=== PATIENT | female | born 1995 | race Caucasian/White ===

== ENCOUNTER → 2016-07-25 | Outpatient (CLI) | payer OTHER ==
[~2016-07-25] MED LIST: MTR600X PO; OXYC5TAB PO
--- NOTE | 2016-07-25 14:00 | DIAGNOSTIC IMAGING REPORT ---
CHEST 2 VIEWS ROUTINE CLINICAL HISTORY: Lower respiratory tract infection. Pneumonia. COMPARISON STUDY: No previous studies for comparison. FINDINGS: Lung volumes are normal. Lungs are clear. There is no pneumothorax or pleural effusion. Cardiac size is normal. Mediastinal contours are normal. There is no evidence of pulmonary edema. IMPRESSION: No acute cardiopulmonary findings. Electronically signed by: Fernando Paula M.D. 07/25/2016 1:59 PM Dictated Date/Time: 07/25/2016 1:59 PM
== END | disposition home or self-care (01) ==
LOC: C.RAD 13:27
PROVIDERS: ATTEND Physician Assistant Surgical
DX: J22 Unspecified acute lower respiratory infection (principal)

== ENCOUNTER → 2017-02-09 | Outpatient (CLI) | payer OTHER ==
[2017-02-09 13:16] LABS: MANUAL MICROSCOPIC REQUIRED? NO; REVIEW REQ? NO; URINE APPEARANCE CLEAR (CLEAR); URINE BILIRUBIN NEG (NEG); URINE COLOR YELLOW; URINE EPITHELIAL CELL AUTO >30 /lpf (0-5); URINE NITRITE NEG (NEG); URINE SPECIFIC GRAVITY 1.021 (1.000-1.030); UROBILINOGEN NEG (NEG)
== END | disposition home or self-care (01) ==
LOC: C.LABSPEC 12:01
PROVIDERS: ATTEND Obstetrics & Gynecology
DX: O34.219 Maternal care for unspecified type scar from previous cesarean delivery (principal); Z3A.00 Weeks of gestation of pregnancy not specified

== ENCOUNTER → 2017-05-18 | Outpatient (CLI) | payer OTHER ==
[2017-05-18 17:23] LABS: HEMATOCRIT 32.7 % (37-47); HEMOGLOBIN 10.9 g/dL (12.0-16.0)
== END | disposition home or self-care (01) ==
LOC: C.LAB1850 16:00
PROVIDERS: ATTEND Obstetrics & Gynecology
DX: Z34.83 Encounter for supervision of other normal pregnancy, third trimester (principal); Z3A.00 Weeks of gestation of pregnancy not specified

== ENCOUNTER 2017-06-19 14:54 | Outpatient (CLI) | payer OTHER ==
[~2017-06-19] VITALS: Ht 149.9 cm; Wt 73.0 kg
[2017-06-19 15:48] VITALS: Ht 149.9 cm; Wt 73.0 kg
[2017-06-19] MEDS ORDERED: PRENCAP38 PO (15:54)
== END 2017-06-19 16:35 | disposition home or self-care (01) ==
LOC: C.OPB 14:54 → C.LD 14:54 → C.OPB 16:35
PROVIDERS: ATTEND Obstetrics & Gynecology
DX: O99.89 Other specified diseases and conditions complicating pregnancy, childbirth and the puerperium (principal); R10.9 Unspecified abdominal pain; Z3A.32 32 weeks gestation of pregnancy

== ENCOUNTER → 2017-07-09 | Outpatient (CLI) | payer OTHER ==
[~2017-07-09] MED LIST changes: -MTR600X PO; -OXYC5TAB PO; +PRENCAP38 PO
== END | disposition home or self-care (01) ==
LOC: C.LAB1850 16:55
PROVIDERS: ATTEND Obstetrics & Gynecology
DX: L29.8 Other pruritus (principal)

== ENCOUNTER 2017-07-11 09:20 | Outpatient (CLI) | payer OTHER ==
[~2017-07-11] VITALS: Ht 149.9 cm; Wt 75.0 kg
[2017-07-11] MEDS ORDERED: ONDANSETRON 4 MG TAB PO PRN (09:30)
[2017-07-11] MEDS ORDERED: ONDANSETRON INJ 2 MG/ML 2 ML VIAL IV PRN (09:30)
[2017-07-11 09:48] LABS: BASO % 0.1 %; BASO ABS # 0.01 K/uL (0-0.2); EOS % 0.6 %; EOS ABS # 0.07 K/uL (0-0.5); HEMATOCRIT 33.9 % (37-47); HEMOGLOBIN 11.3 g/dL (12.0-16.0); IG# 0.03 K/uL (0.00-0.02); LYMPH ABS # 1.95 K/uL (1.2-3.4); MEAN CELL VOLUME 83.5 fL (80-100); MEAN CORPUSCULAR HEMOGLOBIN 27.8 pg (25-34); MEAN CORPUSCULAR HGB CONC 33.3 g/dl (32-36); MEAN PLATELET VOLUME 9.8 fL (7.4-10.4); MONO % 5.2 %; MONO ABS # 0.63 K/uL (0.11-0.59); NEUT % 77.9 %; NEUT ABS # 9.52 K/uL (1.4-6.5); PLATELET COUNT 326 K/uL (130-400); RED CELL DISTRIBUTION WIDTH CV 12.6 % (11.5-14.5); RED CELL DISTRIBUTION WIDTH SD 38.1 fL (36.4-46.3); WHITE BLOOD COUNT 12.21 K/uL (4.8-10.8)
[2017-07-11 09:58] VITALS: Ht 149.9 cm; Wt 75.0 kg
[2017-07-11 10:02] LABS: LIPASE 81 U/L (73-393)
[2017-07-11 10:05] LABS: ALBUMIN 2.6 gm/dl (3.4-5.0); ALT/SGPT 97 U/L (12-78); BLOOD UREA NITROGEN 11 mg/dl (7-18); CALCIUM 8.6 mg/dl (8.5-10.1); CARBON DIOXIDE 22 mmol/L (21-32); CREATININE 0.59 mg/dl (0.60-1.20); GLUCOSE 86 mg/dl (70-99); POTASSIUM 3.8 mmol/L (3.5-5.1); SODIUM 135 mmol/L (136-145)
[2017-07-11 10:08] LABS: ALKALINE PHOSPHATASE 192 U/L (45-117); AST/SGOT 44 U/L (15-37); TOTAL PROTEIN 7.4 gm/dl (6.4-8.2)
[2017-07-11] MEDS ORDERED: LACTATED RINGER'S 1000ML 1,000 ML IV SCH (11:45)
[2017-07-17] MEDS ORDERED: MTR600X PO (08:25)
[2017-07-17] MEDS ORDERED: OXYC-57 PO (08:25)
== END 2017-07-11 11:55 | disposition short-term general hospital (02) ==
LOC: C.OPB 09:20 → C.LD 09:20 → C.OPB 11:55
PROVIDERS: ATTEND Obstetrics & Gynecology
DX: O99.89 Other specified diseases and conditions complicating pregnancy, childbirth and the puerperium (principal); L29.9 Pruritus, unspecified; Z3A.36 36 weeks gestation of pregnancy

== ENCOUNTER 2017-07-12 13:52 | Outpatient (CLI) | payer OTHER ==
[2017-07-12] MEDS ORDERED: NURSING VERBAL MED ORDER ONE (14:15)
[2017-07-12] MEDS ORDERED: BETAMETH SOD PHOS/ACETATE IA 6 MG/ML IM ONE (14:30)
[2017-07-17] MEDS ORDERED: MTR600X PO (08:25)
[2017-07-17] MEDS ORDERED: OXYC-57 PO (08:25)
--- NOTE | 2017-07-17 10:48 | EDITING REQUIRED CODING QUERY ---
DIAGNOSIS NEEDED To promote full compliance with coding requirements relating to patient care, physician participation is requested in all cases of selling manager uncertainty. Please assist us with the question(s) below: Coding Question: The patient received a betamethasone injection in labor and delivery on 07/12/17 as noted within the record. Please document the diagnosis that is being addressed by the medication/treatment. Provider Response: DIAGNOSIS: Elevated liver enzymes. Suspected intrahepatic cholestasis of WEEKS GESTATION: 35 Thank you for your assistance, Yeimy Smith - Sewage Reticulation Drafting Officer
== END 2017-07-12 14:30 | disposition home or self-care (01) ==
LOC: C.OPB 13:52 → C.LD 13:52 → C.OPB 14:30
PROVIDERS: ATTEND Obstetrics & Gynecology
DX: O26.893 Other specified pregnancy related conditions, third trimester (principal); R74.8 Abnormal levels of other serum enzymes; Z3A.35 35 weeks gestation of pregnancy

== ENCOUNTER → 2017-07-13 | Outpatient (CLI) | payer OTHER ==
[2017-07-13 15:38] LABS: HEMATOCRIT 32.2 % (37-47); HEMOGLOBIN 10.5 g/dL (12.0-16.0); MEAN CELL VOLUME 84.7 fL (80-100); MEAN CORPUSCULAR HEMOGLOBIN 27.6 pg (25-34); MEAN CORPUSCULAR HGB CONC 32.6 g/dl (32-36); MEAN PLATELET VOLUME 10.1 fL (7.4-10.4); PLATELET COUNT 358 K/uL (130-400); RED CELL DISTRIBUTION WIDTH CV 12.6 % (11.5-14.5); RED CELL DISTRIBUTION WIDTH SD 38.7 fL (36.4-46.3); WHITE BLOOD COUNT 11.38 K/uL (4.8-10.8)
[2017-07-13 16:05] LABS: ALBUMIN 2.8 gm/dl (3.4-5.0); TOTAL PROTEIN 7.5 gm/dl (6.4-8.2)
== END | disposition home or self-care (01) ==
LOC: C.LAB1850 14:08
PROVIDERS: ATTEND Obstetrics & Gynecology
DX: L29.8 Other pruritus (principal)

== ENCOUNTER 2017-07-14 10:55 | Inpatient (IN) | payer OTHER ==
[2017-07-13 19:50] VITALS: BP 144/77; PULSE 81; TEMP 37; O2SAT 99
[~2017-07-14] VITALS: Ht 149.9 cm; Wt 74.1 kg
[2017-07-14 11:38] LABS: BASO % 0.2 %; BASO ABS # 0.02 K/uL (0-0.2); EOS % 1.2 %; HEMATOCRIT 32.2 % (37-47); HEMOGLOBIN 10.5 g/dL (12.0-16.0); IG# 0.03 K/uL (0.00-0.02); LYMPH % 26.6 %; LYMPH ABS # 2.24 K/uL (1.2-3.4); MEAN CELL VOLUME 84.1 fL (80-100); MEAN CORPUSCULAR HEMOGLOBIN 27.4 pg (25-34); MEAN CORPUSCULAR HGB CONC 32.6 g/dl (32-36); MEAN PLATELET VOLUME 9.7 fL (7.4-10.4); MONO % 14.6 %; MONO ABS # 1.23 K/uL (0.11-0.59); NEUT ABS # 4.81 K/uL (1.4-6.5); PLATELET COUNT 356 K/uL (130-400); RED CELL DISTRIBUTION WIDTH CV 12.7 % (11.5-14.5); RED CELL DISTRIBUTION WIDTH SD 38.8 fL (36.4-46.3); WHITE BLOOD COUNT 8.43 K/uL (4.8-10.8)
[2017-07-14 11:46] LABS: INR 0.9 (0.9-1.1); PTT PATIENT 21.5 SECONDS (21.0-31.0)
[2017-07-14 11:55] LABS: ALBUMIN 2.6 gm/dl (3.4-5.0); ALT/SGPT 331 U/L (12-78); BLOOD UREA NITROGEN 9 mg/dl (7-18); CALCIUM 8.7 mg/dl (8.5-10.1); CARBON DIOXIDE 24 mmol/L (21-32); CREATININE 0.57 mg/dl (0.60-1.20); GLUCOSE 67 mg/dl (70-99); POTASSIUM 3.9 mmol/L (3.5-5.1); SODIUM 137 mmol/L (136-145); URIC ACID 5.4 mg/dl (2.6-7.2)
[2017-07-14 11:58] LABS: ALKALINE PHOSPHATASE 163 U/L (45-117); AST/SGOT 210 U/L (15-37); TOTAL PROTEIN 7.2 gm/dl (6.4-8.2)
[2017-07-14 13:23] LABS: HEP C IGG 13 YRS+OLDER_RFLX NEG (NEG)
[2017-07-14] MEDS ORDERED: CITRIC ACID/SODIUM CITRATE 15 ML UDC PO ONE (14:15)
[2017-07-14] MEDS ORDERED: LACTATED RINGER'S 1000ML 1,000 ML IV SCH (14:15)
[2017-07-14] MEDS ORDERED: CEFAZOLIN IV 2,000 MG in SYRINGE 0 ML IV SCH (14:30)
[2017-07-14 14:59] VITALS: Ht 149.9 cm; Wt 74.1 kg
[2017-07-14] MEDS ORDERED: MoRPHine SULFATE PF 1 MG/ML 10 ML AMP/VIAL ONE (15:18)
[2017-07-14] MEDS ORDERED: OXYTOCIN INJ 10 UNITS/ML VIAL ONE ×2 (15:18→16:09)
[2017-07-14] MEDS ORDERED: FENTANYL CITRATE INJ 50 MCG/1 ML 2 ML VIAL ONE (15:18)
[2017-07-14] MEDS ORDERED: PHENYLEPHRINE 100MCG/ML 5ML SYR ONE (15:42)
[2017-07-14] MEDS ORDERED: ONDANSETRON INJ 2 MG/ML 2 ML VIAL ONE (16:11)
[2017-07-14] MEDS ORDERED: NALOXONE HCL INJ 0.08 MG in SYRINGE 1.8 ML IV PRN (16:13)
[2017-07-14] MEDS ORDERED: SODIUM CHLORIDE 0.9% 1000ML 1,000 ML IV PRN (16:13)
[2017-07-14] MEDS ORDERED: NALOXONE HCL INJ 1 MG in SODIUM CHLORIDE 0.9% 1000ML 1,000 ML IV PRN (16:13)
[2017-07-14] MEDS ORDERED: LACTATED RINGER'S 1000ML 500 ML IV PRN (16:13)
[2017-07-14] MEDS ORDERED: MoRPHine SULFATE 2 MG/ML CARP IV PRN (16:15)
[2017-07-14] MEDS ORDERED: NALBUPHINE HCL INJ 10 MG/ML AMP IV PRN (16:15)
[2017-07-14] MEDS ORDERED: NO NARCOTICS OR SEDATIVES SCH (16:15)
[2017-07-14] MEDS ORDERED: DiphenhydrAMINE HCL 50 MG/ML VIAL IV PRN (16:15)
[2017-07-14] MEDS ORDERED: MoRPHine SULFATE PF 1 MG/ML 10 ML AMP/VIAL EPI PRN (16:15)
[2017-07-14] MEDS ORDERED: ONDANSETRON INJ 2 MG/ML 2 ML VIAL IV PRN (16:15)
[2017-07-14] MEDS ORDERED: NALOXONE HCL 0.4 MG/1 ML VIAL/CARP IV PRN (16:15)
[2017-07-14] MEDS ORDERED: EpHEDrine SULFATE INJ 50 MG/ML AMP IV PRN (16:15)
[2017-07-14] MEDS ORDERED: D5W AND LACTATED RINGERS 1,000 ML IV SCH (16:35)
--- NOTE | 2017-07-14 16:42 | [facility] Post Operative Brief Note ---
Immediate Operative Summary Operative Date Jul 14, 2017. Pre-Operative Diagnosis Intrauterine at 36 weeks;Intrahepatic Cholestasis of ;Elevated Liver Enzymes;Previous Caesarean Section Post-Operative Diagnosis Same Procedure(s) Performed Repeat Caesarean Section; Delivery of a live male child at [address] Jama Dental Ceramist Surgeon(s) Sulma Hope RN Estimated Blood Loss 600 cc Findings Consistent with Post-Op Diagnosis Specimens cord blood placenta-exam arterial and venous gases Drains ALLRED Anesthesia Type Spinal Complication(s) none Disposition Accompanied Pt To Recover: no Disposition: L&D
[2017-07-14] MEDS ORDERED: LANOLIN OINT EXT PRN (16:45)
[2017-07-14] MEDS ORDERED: DIPHTHERIA/TETANUS/PERTUSSIS 0.5 ML SYR/VIAL IM. ONE (16:45)
[2017-07-14] MEDS ORDERED: DC PCA PRN (16:45)
[2017-07-14] MEDS ORDERED: OXYTOCIN INJ 20 UNITS in LACTATED RINGER'S 1000ML 1,000 ML IV SCH (17:00)
--- NOTE | 2017-07-14 17:04 | OPERATIVE REPORT ---
DATE OF OPERATION: 07/14/2017 PREOPERATIVE DIAGNOSES: 1. Intrauterine at 36 and 0/7th weeks. 2. Presumed Intrahepatic cholestasis of . 3. Elevated liver enzymes. 4. History of section, desires repeat. SURGEON: Dr. Jama. CLINICAL DATA PROGRAMMER: Sulma Hope RN. ANESTHESIA: Spinal. ESTIMATED BLOOD LOSS: 600 mL. FLUIDS: 2000 mL. URINE OUTPUT: 100 mL of clear yellow urine drained from the bladder at the end of the procedure. INDICATIONS: The patient is a 21-year-old 2, para 1-0-0-1 with a history of previous section for failure to progress, who has suspected intrahepatic cholestasis of and worsening liver functions. She has been ruled out for preeclampsia and hepatitis, and on consult with [facility], they recommend delivery. FINDINGS: Viable male infant in cephalic presentation, no nuchal cord, clear amniotic fluid, Apgars 8, 8 and 9. Normal uterus, tubes, and ovaries were noted bilaterally. COMPLICATIONS: None. DRAINS: Abdul. DISPOSITION: To recovery room in stable condition. DESCRIPTION OF PROCEDURE: The patient was taken the operating room where she was identified verbally and by bracelet. She was seated on the operating table where a spinal anesthetic was placed. She was then placed in dorsal supine position with a leftward tilt. A Abdul catheter was placed sterilely. The patient was prepped and draped in normal sterile fashion. A time-out was held identifying correct patient, procedure and positioning. A Pfannenstiel skin incision was made with a knife. This was taken to the underlying layer of fascia with the knife. Bleeding was attended to with Bovie electrocautery. The knife was used to incise the fascia in the midline. This was taken out laterally with scissors. The superior edge of the fascial incision was grasped and elevated and the underlying layer of rectus muscle was taken off bluntly and with scissors. In a similar fashion, the inferior edge of the fascial incision was grasped and elevated and the underlying layer of rectus muscle was taken off bluntly and with scissors. The muscles were sharply and bluntly in the midline. The peritoneum was entered bluntly. The peritoneum was taken superiorly sharply with good visualization and the incision was stretched, the bladder blade was placed. The custom feed mill operator's hand was placed into the abdomen. There were some adhesions that were broken down with the custom feed mill operator's hand and there was a dense adhesion on the right side of the uterus, but this was not needed to be taken down prior to delivery of the baby. The bladder flap was created sharply with scissors with some difficulty, it was quite adherent and high on the uterus. The hysterotomy incision was then made with the knife, staying high. Amniotomy was performed with a snap. Clear fluid was released. The custom feed mill operator's hand was then placed into the uterus, we had a difficult time delivering the head, so the vacuum was called for. The vacuum was applied and the head was delivered. The vacuum was removed. There was no nuchal cord. The nose and mouth were bulb suctioned and the rest of the infant was then delivered without difficulty. The nose and mouth were again bulb suctioned. The cord was clamped and cut. The was handed off to waiting interior assemblies developer prover for drying and attention. Cord blood and gases were obtained. Placenta was delivered via manual extraction. The uterus was exteriorized and cleared of all clot and debris with moistened laparotomy sponges. The inferior edge of the hysterotomy incision was grasped with T clamps, and the first layer of 0 Vicryl locked suture was placed. Being very careful to be aware of where the bladder was. A second imbricating layer was then placed. Hemostasis was attended to with some Bovie electrocautery. The posterior cul-de-sac was cleared of all clot and debris. The thick adhesion on the right side of the uterus to the anterior abdominal wall was taken down with Bovie electrocautery. Some oozing sites on the anterior uterus from previous small adhesions were attended to with Bovie electrocautery. The uterus was reinteriorized. One [id number]-[id number] stitch was needed for hemostasis and then hemostasis was noted to be good. The rectus muscles were reapproximated in the midline with interrupted stitches of 0 Vicryl. The fascia was repaired with 0 Vicryl starting at the edges and meeting in the midline. Subcuticular tissue was copiously irrigated with warm normal saline and bleeding was attended to with Bovie electrocautery. The subcuticular space was reapproximated with horizontal mattress sutures of 2-0 plain gut and the skin was closed with a suture of 4-0 Vicryl. All sponge, lap and needle counts were correct x2. The patient tolerated the procedure well and was taken to recovery room in stable condition. I attest to the content of the Intraoperative Record and any orders documented therein. Any exceptions are noted below. MTDD
[2017-07-14] MEDS: SIMETHICONE 80 MG CHEW PO SCH ×2 (17:15→20:00)
[2017-07-14] MEDS: KETOROLAC TROMETHAMINE 30 MG/ML VIAL IV. PRN ×2 (17:26→23:39)
--- NOTE | 2017-07-14 18:28 | Anesthesiology Progress Note ---
Anesthesia Post Op Note Date & Time Jul 14, 2017 at 18:27 Vital Signs Pain Intensity: 2 Notes Mental Status: alert / awake / arousable, participated in evaluation Pt Amnestic to Procedure: Yes Nausea / Vomiting: adequately controlled Pain: adequately controlled Airway Patency, RR, SpO2: stable & adequate BP & HR: stable & adequate Hydration State: stable & adequate Neuraxial Anesthesia: was administered, sensory block is resolving Anesthetic Complications: no major complications apparent
[2017-07-14 18:50] VITALS: BP 126/81; PULSE 79; TEMP 36.9; O2SAT 100; O2SAT 99
[2017-07-14] MEDS: MEPERIDINE HCL 25 MG/ML CARP IV PRN (18:54)
[2017-07-14] MEDS: DOCUSATE SODIUM 100 MG CAP PO SCH (20:00)
[2017-07-14 20:50] VITALS: BP 140/72; PULSE 84; O2SAT 99
[2017-07-14 21:50] VITALS: O2SAT 98
[2017-07-14] MEDS ORDERED: INFLUENZA ADMINISTRATION CHARGE ONE (22:45)
[2017-07-14] MEDS ORDERED: INFLUENZA VIRUS QUAD VACCINE 0.5 ML SYR IM. ONE (22:45)
[2017-07-14 23:30] VITALS: BP 114/73; PULSE 76; TEMP 37; O2SAT 95
[2017-07-15] VITALS (14 sets, daily range): BP systolic 110–125; BP diastolic 74–80; PULSE 72–80; TEMP 36.5–36.8; O2SAT 93–99
[2017-07-15] MEDS ORDERED: LACTATED RINGER'S 1000ML 1,000 ML IV SCH (01:00)
[2017-07-15] MEDS ORDERED: INFLUENZA ADMINISTRATION CHARGE ONE (03:00)
[2017-07-15] MEDS ORDERED: INFLUENZA VIRUS QUAD VACCINE 0.5 ML SYR IM. ONE (03:00)
[2017-07-15] MEDS: MEPERIDINE HCL 25 MG/ML CARP IV PRN (03:54)
--- NOTE | 2017-07-15 06:29 | Progress Note ---
Subjective Jul 15, 2017. Subjective conversation w/ patient, physical exam Ambulation: limited ambulation Voiding: deleon catheter in place Passing Gas: Yes Diet Tolerance: Clear Liquids (to be advanced to solids today as tolerated) Lochia: Small Feeding Type: Bottle Feeding Pain: reports moderate amount of pain, improved with rx Comment: pt seen and assessed at bedside today; no acute events overnight Review of Systems Constitutional: No fever, No chills Respiratory: No cough, No shortness of breath Cardiac: No chest pain, No edema Abdomen: No nausea, No vomiting no headaches or calf pain Objective Vital Signs Date Time Temp Pulse Resp B/P (MAP) Pulse Ox O2 Delivery O2 Flow Rate FiO2 07/15/17 05:35 16 94 07/15/17 04:45 18 97 07/15/17 03:20 18 94 07/15/17 03:20 36.8 76 18 125/80 (95) 94 Room Air 07/15/17 02:40 18 95 07/15/17 01:35 18 93 07/15/17 00:15 18 96 07/14/17 23:30 37.0 76 18 114/73 (87) 95 Room Air 07/14/17 23:30 18 95 07/14/17 23:30 95 Room Air 07/14/17 21:50 18 98 07/14/17 20:50 18 99 07/14/17 20:50 84 18 140/72 (94) 99 Room Air 07/14/17 18:50 16 100 07/14/17 18:50 99 Room Air 07/14/17 18:50 100 Room Air 07/14/17 18:50 36.9 79 18 126/81 (96) 100 Room Air Physical Exam General Appearance: WELL-APPEARING, WD/WN, NO APPARENT DISTRESS Respiratory/Chest: chest non-tender, lungs clear, normal breath sounds, no respiratory distress Cardiovascular: regular rate, rhythm, no edema, no murmur Abdomen: normal bowel sounds, non tender, soft Fundus: Firm, Non-Tender, Relation to Umbilicus (2-3 below) Incision Description: Clean, Dry & Intact Extremities: normal range of motion, non-tender, normal inspection, no pedal edema, no calf tenderness Laboratory Results Last 24 Hours Test 07/14/17 11:00 07/14/17 11:23 07/15/17 06:00 Urine Color DK YELLOW Urine Appearance CLOUDY Urine pH 6.5 Urine Specific [place] 1.028 Urine Protein TRACE Urine Glucose (UA) NEG Urine Ketones TRACE Urine Occult Blood NEG Urine Nitrite NEG Urine Bilirubin 2+ Urine Urobilinogen NEG Urine Leukocyte Esterase SMALL Urine WBC (Auto) 10-30 /hpf Urine RBC (Auto) 0-4 /hpf Urine Hyaline Casts (Auto) 1-5 /lpf Urine Epithelial Cells (Auto) >30 /lpf Urine Bacteria (Auto) 1+ Urine Crystals CALCIUM OXALATE Urine Pathogenic Casts /lpf Urine Yeast (Auto) Urine Random Creatinine 231.0 mg/dl Urine Random Total Protein 75.9 mg/dl Urine Protein/Creatinine Ratio 0.3 White Blood Count 8.43 K/uL Red Blood Count 3.83 M/uL Hemoglobin 10.5 g/dL Hematocrit 32.2 % Mean Corpuscular Volume 84.1 fL Mean Corpuscular Hemoglobin 27.4 pg Mean Corpuscular Hemoglobin Concent 32.6 g/dl Platelet Count 356 K/uL Mean Platelet Volume 9.7 fL Neutrophils (%) (Auto) 57.0 % Lymphocytes (%) (Auto) 26.6 % Monocytes (%) (Auto) 14.6 % Eosinophils (%) (Auto) 1.2 % Basophils (%) (Auto) 0.2 % Neutrophils # (Auto) 4.81 K/uL Lymphocytes # (Auto) 2.24 K/uL Monocytes # (Auto) 1.23 K/uL Eosinophils # (Auto) 0.10 K/uL Basophils # (Auto) 0.02 K/uL RDW Standard Deviation 38.8 fL RDW Coefficient of Variation 12.7 % Immature Granulocyte % (Auto) 0.4 % Immature Granulocyte # (Auto) 0.03 K/uL Prothrombin Time 9.1 SECONDS Prothromb Time International Ratio 0.9 Activated Partial Thromboplast Time 21.5 SECONDS Partial Thromboplastin Ratio 0.8 Sodium Level 137 mmol/L Potassium Level 3.9 mmol/L Chloride Level 104 mmol/L Carbon Dioxide Level 24 mmol/L Anion Gap 9.0 mmol/L Blood Urea Nitrogen 9 mg/dl Creatinine 0.57 mg/dl Estimated GFR () > 150.0 Estimated GFR (Non- 131.6 BUN/Creatinine Ratio 15.1 Random Glucose 67 mg/dl Uric Acid 5.4 mg/dl Calcium Level 8.7 mg/dl Total Bilirubin 0.7 mg/dl Direct Bilirubin 0.5 mg/dl Aspartate Amino Transf (AST/SGOT) 210 U/L Alanine Aminotransferase (ALT/SGPT) 331 U/L Alkaline Phosphatase 163 U/L Total Protein 7.2 gm/dl Albumin 2.6 gm/dl Globulin 4.6 gm/dl Albumin/Globulin Ratio 0.6 Hepatitis B Surface Antigen NEG Hepatitis C Antibody NEG Medications Current Inpatient Medications Medications (Trade) Dose Ordered Sig/Dorinda Route Start Time Stop Time Status Last Admin Dose Admin Naloxone HCl (Narcan Inj) 0.1 mg UD PRN IV 07/14/17 16:15 07/15/17 09:30 Diphenhydramine HCl (Benadryl Inj) 25 mg Q6H PRN IV 07/14/17 16:15 07/15/17 09:30 07/14/17 22:12 25 MG Nalbuphine HCl (Nubain Inj) 5 mg Q10M PRN IV 07/14/17 16:15 07/15/17 09:30 Naloxone HCl 1 mg/ Sodium Chloride 1,002.5 ml @ 50 mls/hr Q20H3M PRN IV 07/14/17 16:13 07/15/17 09:30 Ondansetron HCl (Zofran Inj) 4 mg Q6H PRN IV 07/14/17 16:15 07/15/17 09:30 Ketorolac Tromethamine (Toradol Inj) 30 mg Q6H PRN IV. 07/14/17 16:15 07/15/17 09:30 07/14/17 23:39 30 MG Meperidine HCl (Demerol Inj) 25 mg Q15M PRN IV 07/14/17 16:15 07/15/17 09:30 07/15/17 03:54 25 MG Miscellaneous Information (Dc Intraspinal Morphine) 1 ea TODAY@0930 N/A 07/15/17 09:30 07/15/17 09:31 Miscellaneous Information (No Narcotics Or Sedatives) 1 ea UD N/A 07/14/17 16:15 07/15/17 09:30 Naloxone HCl 0.08 mg/Syringe 2 ml @ 1 mls/min Q2M PRN IV 07/14/17 16:13 07/15/17 09:30 Morphine Sulfate (MoRPHine SULFATE INJ) 2 mg Q6H PRN IV 07/14/17 16:15 07/15/17 09:30 07/14/17 22:12 2 MG Ephedrine Sulfate (EpHEDrine SULFATE INJ) 10 mg Q5M PRN IV 07/14/17 16:15 07/15/17 09:30 Morphine Sulfate (Duramorph Pf Inj) TODAY PRN EPI 07/14/17 16:15 Lactated Ringer's 1,000 ml @ 125 mls/hr Q8H IV 07/15/17 01:00 08/14/17 00:59 Ketorolac Tromethamine (Toradol Inj) 30 mg Q6H PRN IV. 07/15/17 09:30 07/20/17 09:29 Meperidine HCl (Demerol Inj) 50 mg Q4H PRN IV 07/15/17 09:30 07/29/17 09:29 Meperidine HCl (Demerol Inj) 75 mg Q4H PRN IV 07/15/17 09:30 07/29/17 09:29 Oxycodone/ Acetaminophen (Percocet 5-325mg Tab) 1 tab Q4H PRN PO 07/15/17 09:30 07/29/17 09:29 Oxycodone/ Acetaminophen (Percocet 5-325mg Tab) 2 tab Q4H PRN PO 07/15/17 09:30 07/29/17 09:29 Ibuprofen (Motrin Tab) 600 mg Q4H PRN PO 07/14/17 16:45 08/13/17 16:44 Prenat Multivit/ [place]/Iron/Folic Ac ( Vitamin Tab) 1 tab DAILY PO 07/15/17 08:00 08/14/17 07:59 Docusate Sodium (coLACE CAP) 100 mg BID PO 07/14/17 20:00 08/13/17 19:59 Lanolin (Lanolin Oint) PRN PRN EXT 07/14/17 16:45 08/13/17 16:44 Simethicone (Mylicon Chew Tab) 80 mg QID PO 07/14/17 17:00 08/13/17 16:59 Diphenhydramine HCl (Benadryl Cap) 25 mg QID PRN PO 07/15/17 09:30 08/14/17 09:29 Diphenhydramine HCl (Benadryl Inj) 25 mg QID PRN IV 07/15/17 09:30 08/14/17 09:29 Assessment and Plan Problem List Medical Problems: (1) Hematoma Status: Acute (2) Hypokalemia Status: Acute (3) Post-op bleeding Status: Acute (4) Right flank pain Status: Acute Post-Op Day#: 1 Continue Routine Care: 21 yo POD 1 s/p CS Pt doing well clinically Encourage ambulation Moderate amount of pain, continue rx pain meds prn Deleon out today, advance diet as tolerated Resident Physician Supervision Note: I interviewed and examined the patient. Discussed with Dr. Varela and agree with findings and plan as documented in the note. Any exceptions or clarifications are listed here: Doing well. Baby improving. Plan to check liver functions tomorrow as they should now decrease given delivery is cure for icp. Documented By: Yenni Jama Resident Tracking Resident Involvement: Resident Care Provided Care Provided: OB Delivery
--- NOTE | 2017-07-15 06:42 | Discharge Instructions ---
Discharge Instructions Date of Service Jul 15, 2017. Admission Reason for Admission: Lab Work Discharge Discharge Diagnosis / Problem: s/p CS Discharge Goals Goal(s): Routine recovery after Medications Continue Dispensed Medications: lansinoh Activity Recommendations Activity Limitations: per Instructions/Follow-up section . Instructions / Follow-Up Instructions / Follow-Up ACTIVITY RECOMMENDATIONS: * Gradual return to full activity over the next 2-3 weeks. * No lifting - nothing heavier than baby over the next 2-3 weeks. * Do not engage in vigorous exercise, sexual activity or sports until cleared by your physician. * Do not drive or operate any motorized equipment until cleared by your physician. * You may shower/bathe daily. MEDICATIONS: For discomfort or pain, you may use Acetaminophen (Tylenol), Ibuprofen (Advil), or Naproxen (Aleve) following the package directions. For constipation you may use Colace following the package directions. BREAST CARE: If you are not breast feeding: * Wear a supportive bra 24 hours a day for one to two weeks. * Avoid stimulating your breasts and nipples as much as possible during the first few weeks after delivery. * When taking a shower, have the warm water hit your back, not breasts. * When your breasts feel full, apply ice packs. Usually three to four times a day helps ease the discomfort. * Take a mild pain medication (Tylenol / Motrin) when you are uncomfortable. If breast feeding: * Use breast milk to lubricate nipples. Lansinoh cream may be used for sore nipples. You do not need to remove cream prior to breast feeding. If using a different brand of cream, check the label for directions regarding removal of cream prior to nursing. * Wear a supportive bra. * If having problems with breasts or breast feeding, call a wallpaper consultant or your health care provider. SPECIAL CARE INSTRUCTIONS: When you are discharged from the hospital, it is important for you to follow the instructions listed below: * During the first week at home, you should be able to care for yourself and your baby. In addition, the usual light household activities are encouraged. * Limit your activities to the way you feel. Do not try to clean the house or move furniture. Be sensible. * If you actively engage in sports and have done so up until the time of your delivery, you may resume these activities as soon as you feel able. This may take up to one month or even longer. Use good judgment. * Continue to take your vitamins for at least six weeks after the of your baby. * Your diet need not be limited unless you were on a special diet before your delivery. Breast-feeding mothers need around 2500 calories per day and at least 64-80 ounces of fluid per day (8 to 10 glasses). * You should eat foods from the four major food groups. Crash diets or fad diets are to be avoided. Eating lean meats, fresh fruits and vegetables, low-fat dairy products, high fiber foods and a regular exercise program, will help you get back to your pre- weight without putting your health at risk. * Constipation is sometimes a problem after delivery. Take a mild laxative as needed. If breast feeding, Milk of Magnesia is acceptable to use. You may use a suppository or Fleets enema. * A daily shower or tub bath is suggested. Wash incision daily with warm soapy water and pat dry. It doesn't need to be covered unless drainage is present. * A bloody vaginal discharge will usually continue until around four weeks . A small amount of bleeding may continue for as long as six weeks. Vaginal discharge changes from the bright red bleeding after delivery to pink then brownish and finally yellowish-pink before becoming white and disappearing. * Bleeding may increase with activity. Your first period may come in 4-8 weeks. If you are breast feeding, your period may be delayed even longer. * Ixl (sex) can begin whenever both you and your partner feel comfortable and do not have any form of genital infection. It is recommended that you wait at least six weeks for internal and external healing to occur. If you have questions, please talk to your health care practitioner. A condom should be used to prevent infection and . * Foreplay, gentle intercourse and lubrication is very important the first several times to prevent pain. A water-based lubricant such as K-Y jelly or Astroglide may be used. * If you have RH negative blood and your baby is RH positive, you will receive RHOGAM by injection prior to discharge. The nurse will give you a card to keep with you that has the date and place that you received RHOGAM after delivery. * During your care, you had a Rubella screen done to check for the presence of rubella antibodies in your blood. If your test was negative, you will receive a Rubella vaccine prior to discharge. This vaccine may cause a fever, soreness at the injection site and flu-like symptoms. If these symptoms persist, notify your health care practitioner. is not advised for one month after a Rubella vaccine. * Verbalizes understanding of car seat law as reviewed with patient nursing. * Car Seat hand-out given and reviewed with patient by nursing. * Shaken baby information reviewed with patient by nursing. Call you doctor if: * Heavy bleeding (saturating several pads an hour) or passing clots the size of your fist. * A fever >101 degrees F (38.3 degrees C) on two occasions four hours apart and /or chills. * Unusual pain in the pelvic or vaginal areas. * Call the doctor for any increased redness, drainage or swelling around the incision and any pain unrelieved by prescribed pain medication. * "Baby Blues" lasting longer than two weeks. If you have any questions or concerns, call your health care practitioner at . FOLLOW UP VISIT: * Please call the office at to schedule a 6 week examination. It is important you keep this appointment. It is important for you to make arrangements for either yearly or twice yearly check-ups thereafter. Current Hospital Diet Patient's current hospital diet: Regular OB Diet Discharge Diet Recommended Diet: Regular OB Diet Procedures Procedures Performed: Repeat Caesarean Section; Delivery of a live male child at 1553 Pending Studies Studies pending at discharge: no Medical Emergencies . Who to Call and When: Medical Emergencies: If at any time you feel your situation is an emergency, please call [phone] immediately. . Non-Emergent Contact Non-Emergency issues call your: [facility] . . "Provider Documentation" section prepared by Yasmine Varela. .
[2017-07-15 08:02] LABS: BASO % 0.3 %; BASO ABS # 0.03 K/uL (0-0.2); EOS % 1.6 %; EOS ABS # 0.17 K/uL (0-0.5); HEMOGLOBIN 9.8 g/dL (12.0-16.0); IG# 0.03 K/uL (0.00-0.02); LYMPH % 19.1 %; LYMPH ABS # 2.05 K/uL (1.2-3.4); MEAN CELL VOLUME 85.2 fL (80-100); MEAN CORPUSCULAR HEMOGLOBIN 27.8 pg (25-34); MEAN CORPUSCULAR HGB CONC 32.7 g/dl (32-36); MEAN PLATELET VOLUME 9.7 fL (7.4-10.4); MONO % 11.1 %; MONO ABS # 1.19 K/uL (0.11-0.59); NEUT % 67.6 %; NEUT ABS # 7.27 K/uL (1.4-6.5); PLATELET COUNT 282 K/uL (130-400); RED CELL DISTRIBUTION WIDTH CV 12.9 % (11.5-14.5); RED CELL DISTRIBUTION WIDTH SD 39.7 fL (36.4-46.3); WHITE BLOOD COUNT 10.74 K/uL (4.8-10.8)
[2017-07-15] MEDS: KETOROLAC TROMETHAMINE 30 MG/ML VIAL IV. PRN ×3 (08:07→22:44)
[2017-07-15] MEDS: SIMETHICONE 80 MG CHEW PO SCH ×4 (08:08→19:35)
[2017-07-15] MEDS: PRENATAL VITAMIN TAB PO SCH (08:08)
[2017-07-15] MEDS: DOCUSATE SODIUM 100 MG CAP PO SCH ×2 (08:08→19:35)
[2017-07-15] MEDS ORDERED: DiphenhydrAMINE HCL 50 MG/ML VIAL IV PRN (09:30)
[2017-07-15] MEDS ORDERED: MEPERIDINE HCL 50 MG/ML CARP IV PRN ×2 (09:30)
[2017-07-15] MEDS ORDERED: DC INTRASPINAL MORPHINE SCH (09:30)
[2017-07-15] MEDS: IBUPROFEN 600 MG TAB PO PRN ×3 (11:00→19:35)
[2017-07-15] MEDS: OXYCODONE/ACETAMINOPHEN 5-325 TAB PO PRN ×4 (11:00→23:08)
[2017-07-15 15:00] LABS: HEPATITIS A IGM TC 51813E NON-REACTIVE (NON-REACTIVE); HEPATITIS B CORE IGM TC51854R NON-REACTIVE (NON-REACTIVE)
[2017-07-16] MEDS: IBUPROFEN 600 MG TAB PO PRN ×5 (04:44→23:29)
[2017-07-16] MEDS: OXYCODONE/ACETAMINOPHEN 5-325 TAB PO PRN ×5 (04:44→23:29)
--- NOTE | 2017-07-16 06:42 | Progress Note ---
Subjective Jul 16, 2017. Subjective conversation w/ patient, physical exam Ambulation: ambulating normally Voiding: no voiding problems Passing Gas: Yes Diet Tolerance: Regular Diet Lochia: Small Feeding Type: Bottle Feeding Pain: moderate, 7/10, improved with meds;right sided abdo and low back pain Comment: pt seen and assessed clinically; no acute events overnight Review of Systems Constitutional: No fever, No chills Respiratory: No cough, No shortness of breath Cardiac: No chest pain, No edema Abdomen: No nausea, No vomiting no headaches or calf pain Objective Vital Signs Date Time Temp Pulse Resp B/P (MAP) Pulse Ox O2 Delivery O2 Flow Rate FiO2 07/15/17 23:30 Room Air 07/15/17 23:30 36.8 72 18 116/79 (91) Room Air 07/15/17 15:45 36.5 80 15 110/74 (86) Room Air 07/15/17 15:45 Room Air 07/15/17 12:05 36.7 72 20 114/76 (89) 07/15/17 09:30 18 95 07/15/17 08:20 98 Room Air 07/15/17 08:20 20 98 07/15/17 08:00 36.8 80 16 115/79 (91) 99 Room Air 07/15/17 07:30 20 98 Physical Exam General Appearance: WELL-APPEARING, WD/WN, NO APPARENT DISTRESS Respiratory/Chest: chest non-tender, lungs clear, normal breath sounds Cardiovascular: regular rate, rhythm, no edema, no murmur Abdomen: normal bowel sounds, non tender, soft Fundus: Firm, Non-Tender, Relation to Umbilicus (2-3 below) Incision Description: Clean, Dry & Intact Extremities: normal range of motion, non-tender, normal inspection, no pedal edema, no calf tenderness Laboratory Results Last 24 Hours Test 07/15/17 07:37 07/16/17 04:44 07/16/17 06:00 White Blood Count 10.74 K/uL Red Blood Count 3.52 M/uL Hemoglobin 9.8 g/dL Hematocrit 30.0 % Mean Corpuscular Volume 85.2 fL Mean Corpuscular Hemoglobin 27.8 pg Mean Corpuscular Hemoglobin Concent 32.7 g/dl Platelet Count 282 K/uL Mean Platelet Volume 9.7 fL Neutrophils (%) (Auto) 67.6 % Lymphocytes (%) (Auto) 19.1 % Monocytes (%) (Auto) 11.1 % Eosinophils (%) (Auto) 1.6 % Basophils (%) (Auto) 0.3 % Neutrophils # (Auto) 7.27 K/uL Lymphocytes # (Auto) 2.05 K/uL Monocytes # (Auto) 1.19 K/uL Eosinophils # (Auto) 0.17 K/uL Basophils # (Auto) 0.03 K/uL RDW Standard Deviation 39.7 fL RDW Coefficient of Variation 12.9 % Immature Granulocyte % (Auto) 0.3 % Immature Granulocyte # (Auto) 0.03 K/uL Medications Current Inpatient Medications Medications (Trade) Dose Ordered Sig/Dorinda Route Start Time Stop Time Status Last Admin Dose Admin Morphine Sulfate (Duramorph Pf Inj) TODAY PRN EPI 07/14/17 16:15 Lactated Ringer's 1,000 ml @ 125 mls/hr Q8H IV 07/15/17 01:00 08/14/17 00:59 Ketorolac Tromethamine (Toradol Inj) 30 mg Q6H PRN IV. 07/15/17 09:30 07/20/17 09:29 07/15/17 22:44 30 MG Meperidine HCl (Demerol Inj) 50 mg Q4H PRN IV 07/15/17 09:30 07/29/17 09:29 Meperidine HCl (Demerol Inj) 75 mg Q4H PRN IV 07/15/17 09:30 07/29/17 09:29 Oxycodone/ Acetaminophen (Percocet 5-325mg Tab) 1 tab Q4H PRN PO 07/15/17 09:30 07/29/17 09:29 07/15/17 19:35 1 TAB Oxycodone/ Acetaminophen (Percocet 5-325mg Tab) 2 tab Q4H PRN PO 07/15/17 09:30 07/29/17 09:29 07/16/17 04:44 2 TAB Ibuprofen (Motrin Tab) 600 mg Q4H PRN PO 07/14/17 16:45 08/13/17 16:44 07/16/17 04:44 600 MG Prenat Multivit/ [employer]station [employer] Draftsperson/Iron/Folic Ac ( Vitamin Tab) 1 tab DAILY PO 07/15/17 08:00 4/20/18 07:59 07/15/17 08:08 1 TAB Docusate Sodium (coLACE CAP) 100 mg BID PO 07/14/17 20:00 08/13/17 19:59 07/15/17 19:35 100 MG Lanolin (Lanolin Oint) PRN PRN EXT 07/14/17 16:45 08/13/17 16:44 Simethicone (Mylicon Chew Tab) 80 mg QID PO 07/14/17 17:00 08/13/17 16:59 07/15/17 19:35 80 MG Diphenhydramine HCl (Benadryl Cap) 25 mg QID PRN PO 07/15/17 09:30 08/14/17 09:29 Diphenhydramine HCl (Benadryl Inj) 25 mg QID PRN IV 07/15/17 09:30 08/14/17 09:29 Assessment and Plan Problem List Medical Problems: (1) Hematoma Status: Acute (2) Hypokalemia Status: Acute (3) Post-op bleeding Status: Acute (4) Right flank pain Status: Acute Post-Op Day#: 2 Continue Routine Care: 21yo F POD 2 s/p CS for intrahepatic cholestasis Pt doing well clinically, however remains in moderate amount of pain Continue routine care Encourage ambulation Pain control with meds prn Patient not comfortable at this time with discharge Resident Physician Supervision Note: I interviewed and examined the patient. Discussed with Dr. Underwood and agree with findings and plan as documented in the note. Any exceptions or clarifications are listed here: [None] Documented By: Jimmy Collins Resident Tracking Resident Involvement: Resident Care Provided Care Provided: OB Delivery
[2017-07-16] MEDS: DOCUSATE SODIUM 100 MG CAP PO SCH ×2 (07:55→20:14)
[2017-07-16] MEDS: PRENATAL VITAMIN TAB PO SCH (07:55)
[2017-07-16] MEDS: SIMETHICONE 80 MG CHEW PO SCH ×4 (07:55→20:14)
[2017-07-16 07:58] LABS: HEMATOCRIT 28.2 % (37-47)
[2017-07-16 08:09] VITALS: BP 138/88; PULSE 74; TEMP 36.5
[2017-07-16] MEDS ORDERED: BISACODYL 10 MG SUPP PR STA (08:19)
[2017-07-16 08:42] LABS: ALBUMIN 1.9 gm/dl (3.4-5.0); TOTAL PROTEIN 5.4 gm/dl (6.4-8.2)
[2017-07-16 12:09] VITALS: BP 131/89; PULSE 80; TEMP 36.6
[2017-07-16 15:55] VITALS: BP 119/82; PULSE 82; TEMP 36.8; O2SAT 100
[2017-07-16 23:20] VITALS: BP 140/89; PULSE 94; TEMP 36.6; O2SAT 99
[2017-07-17] MEDS: OXYCODONE/ACETAMINOPHEN 5-325 TAB PO PRN ×2 (06:11→10:20)
[2017-07-17] MEDS: IBUPROFEN 600 MG TAB PO PRN ×2 (06:12→10:19)
--- NOTE | 2017-07-17 06:25 | Progress Note ---
Subjective Jul 17, 2017. Subjective conversation w/ patient, physical exam Ambulation: ambulating normally Voiding: no voiding problems Passing Gas: Yes Diet Tolerance: Regular Diet Lochia: Small Feeding Type: Bottle Feeding Pain: Patient continues to report 8/10 pain and sharp intermittent pain in RLQ Comment: No acute events overnight. Patient sleeping on entering room, reports sharp RLQ intermittent pain around incision, especially with pressure/coughing/sneezing. Well controlled with narcs. Review of Systems Constitutional: No fever, No chills Respiratory: No cough, No shortness of breath Breast: + breast pain Abdomen: + nausea (some nausea when pain severe), No pain Female : No dysuria no headaches or calf pain Objective Vital Signs Date Time Temp Pulse Resp B/P (MAP) Pulse Ox O2 Delivery O2 Flow Rate FiO2 07/16/17 23:20 36.6 94 16 140/89 (106) 99 Room Air 07/16/17 23:20 99 Room Air 07/16/17 15:55 100 Room Air 07/16/17 15:55 36.8 82 18 119/82 (94) 100 Room Air 07/16/17 12:12 Room Air 07/16/17 12:09 36.6 80 16 131/89 (103) Room Air 07/16/17 08:12 Room Air 07/16/17 08:09 36.5 74 16 138/88 (105) Room Air Physical Exam General Appearance: WELL-APPEARING, WD/WN, NO APPARENT DISTRESS Respiratory/Chest: chest non-tender, lungs clear, normal breath sounds Cardiovascular: regular rate, rhythm, no edema, no murmur Abdomen: normal bowel sounds, + tenderness (expectant tenderness of abdomen post-) Fundus: Firm, Non-Tender, Relation to Umbilicus (2 below) Incision Description: Clean, Dry & Intact Extremities: normal range of motion, non-tender, normal inspection, no pedal edema, no calf tenderness Laboratory Results Last 24 Hours Test 07/16/17 07:08 Hemoglobin 9.0 g/dL Hematocrit 28.2 % Total Bilirubin 0.5 mg/dl Direct Bilirubin 0.3 mg/dl Aspartate Amino Transf (AST/SGOT) 125 U/L Alanine Aminotransferase (ALT/SGPT) 266 U/L Alkaline Phosphatase 126 U/L Total Protein 5.4 gm/dl Albumin 1.9 gm/dl Medications Current Inpatient Medications Medications (Trade) Dose Ordered Sig/Dorinda Route Start Time Stop Time Status Last Admin Dose Admin Morphine Sulfate (Duramorph Pf Inj) TODAY PRN EPI 07/14/17 16:15 Lactated Ringer's 1,000 ml @ 125 mls/hr Q8H IV 07/15/17 01:00 08/14/17 00:59 Ketorolac Tromethamine (Toradol Inj) 30 mg Q6H PRN IV. 07/15/17 09:30 07/20/17 09:29 07/15/17 22:44 30 MG Meperidine HCl (Demerol Inj) 50 mg Q4H PRN IV 07/15/17 09:30 07/29/17 09:29 Meperidine HCl (Demerol Inj) 75 mg Q4H PRN IV 07/15/17 09:30 07/29/17 09:29 Oxycodone/ Acetaminophen (Percocet 5-325mg Tab) 1 tab Q4H PRN PO 07/15/17 09:30 07/29/17 09:29 07/16/17 17:09 1 TAB Oxycodone/ Acetaminophen (Percocet 5-325mg Tab) 2 tab Q4H PRN PO 07/15/17 09:30 07/29/17 09:29 07/17/17 06:11 2 TAB Ibuprofen (Motrin Tab) 600 mg Q4H PRN PO 07/14/17 16:45 08/13/17 16:44 07/17/17 06:12 600 MG Prenat Multivit/ [place]/Iron/Folic Ac ( Vitamin Tab) 1 tab DAILY PO 07/15/17 08:00 08/14/17 07:59 07/16/17 07:55 1 TAB Docusate Sodium (coLACE CAP) 100 mg BID PO 07/14/17 20:00 08/13/17 19:59 07/16/17 20:14 100 MG Lanolin (Lanolin Oint) PRN PRN EXT 07/14/17 16:45 08/13/17 16:44 Simethicone (Mylicon Chew Tab) 80 mg QID PO 07/14/17 17:00 08/13/17 16:59 07/16/17 20:14 80 MG Diphenhydramine HCl (Benadryl Cap) 25 mg QID PRN PO 07/15/17 09:30 08/14/17 09:29 Diphenhydramine HCl (Benadryl Inj) 25 mg QID PRN IV 07/15/17 09:30 08/14/17 09:29 Assessment and Plan Problem List Medical Problems: (1) Hematoma Status: Acute (2) Hypokalemia Status: Acute (3) Post-op bleeding Status: Acute (4) Right flank pain Status: Acute Post-Op Day#: 3 Continue Routine Care: 21yoWF POD#3 s/p urgent c/s for management of intrahepatic cholestasis Continue routine care Encourage ambulation Pain control with rx meds prn Pt reports baby is likely to be transferred to [place] today and she would like to go with if possible. Resident Physician Supervision Note: I interviewed and examined the patient. Discussed with Dr. Varela and agree with findings and plan as documented in the note. Any exceptions or clarifications are listed here: doing well. feels much better today. will likely d/c home as baby leaving our hospital. will give pain med. enc f/u 6 wks pp. call with any worsening sx. notes resolved itching and no n/v today. Documented By: Beatriz Olea Resident Tracking Resident Involvement: Resident Care Provided Care Provided: OB Delivery
[2017-07-17] MEDS: PRENATAL VITAMIN TAB PO SCH (07:39)
[2017-07-17] MEDS: DOCUSATE SODIUM 100 MG CAP PO SCH (07:39)
[2017-07-17] MEDS: SIMETHICONE 80 MG CHEW PO SCH ×2 (07:39→11:39)
[2017-07-17 08:05] VITALS: BP 131/89; PULSE 77; TEMP 36.8; O2SAT 96
[2017-07-17] MEDS ORDERED: OXYC-57 PO (08:25)
[2017-07-17] MEDS ORDERED: MTR600X PO (08:25)
[2017-07-17 11:54] VITALS: BP_DIAS 89; PULSE 77; TEMP 36.8
== END 2017-07-17 13:00 | disposition home or self-care (01) | DRG 765 ==
LOC: C.OPB 10:55 → C.LD 10:56 → C.OPB 14:16 → C.OBG 19:40 → EDSTATUS 08-06 07:30
PROVIDERS: ADMIT Obstetrics & Gynecology; ATTEND Obstetrics & Gynecology
PROC: 10D00Z1 Extraction of Products of Conception, Low, Open Approach (ICD-10-PCS; principal; 2017-07-14 14:15)
DX: O26.62 Liver and biliary tract disorders in childbirth (principal); K83.1 Obstruction of bile duct; O34.219 Maternal care for unspecified type scar from previous cesarean delivery; Z3A.36 36 weeks gestation of pregnancy; Z37.0 Single live birth

== ENCOUNTER 2017-07-27 21:02 | Emergency (ER) | payer OTHER ==
[~2017-07-27] VITALS: Ht 149.9 cm; Wt 68.8 kg
[~2017-07-27 21:02] MED LIST changes: +MTR600X PO; +OXYC-57 PO
[2017-07-27 21:59] VITALS: Ht 149.9 cm; Wt 68.8 kg
[2017-07-27] MEDS ORDERED: KETOROLAC TROMETHAMINE 30 MG/ML VIAL IV STA (23:01)
[2017-07-27] MEDS ORDERED: ONDANSETRON INJ 2 MG/ML 2 ML VIAL IV STA (23:01)
[2017-07-27] MEDS ORDERED: MoRPHine SULFATE 4 MG/ML 1 ML CARP\\VIAL IV PRN (23:15)
[2017-07-27 23:33] LABS: BASO % 0.3 %; BASO ABS # 0.03 K/uL (0-0.2); EOS % 4.6 %; EOS ABS # 0.48 K/uL (0-0.5); HEMOGLOBIN 11.6 g/dL (12.0-16.0); IG# 0.01 K/uL (0.00-0.02); LYMPH % 32.5 %; LYMPH ABS # 3.39 K/uL (1.2-3.4); MEAN CELL VOLUME 85.5 fL (80-100); MEAN CORPUSCULAR HEMOGLOBIN 27.6 pg (25-34); MEAN CORPUSCULAR HGB CONC 32.2 g/dl (32-36); MEAN PLATELET VOLUME 9.7 fL (7.4-10.4); MONO % 6.1 %; MONO ABS # 0.64 K/uL (0.11-0.59); NEUT % 56.4 %; NEUT ABS # 5.88 K/uL (1.4-6.5); PLATELET COUNT 591 K/uL (130-400); RED CELL DISTRIBUTION WIDTH CV 13.3 % (11.5-14.5); RED CELL DISTRIBUTION WIDTH SD 41.5 fL (36.4-46.3); WHITE BLOOD COUNT 10.43 K/uL (4.8-10.8)
[2017-07-27 23:43] VITALS: TEMP 36.8
[2017-07-27 23:52] LABS: ALBUMIN 3.5 gm/dl (3.4-5.0); CALCIUM 9.3 mg/dl (8.5-10.1); CREATININE 0.78 mg/dl (0.60-1.20); POTASSIUM 3.9 mmol/L (3.5-5.1)
[2017-07-27 23:55] LABS: TOTAL PROTEIN 7.9 gm/dl (6.4-8.2)
[2017-07-28 00:24] VITALS: BP 129/83; PULSE 61; O2SAT 98
[2017-07-28] MEDS ORDERED: OXYC1TAB3 PO (00:30)
[2017-07-28] MEDS ORDERED: OXYCODONE IR HOME PACK PO ONE (00:30)
--- NOTE | 2017-07-28 06:59 | DIAGNOSTIC IMAGING REPORT ---
CT SCAN OF THE ABDOMEN AND PELVIS WITHOUT CONTRAST CLINICAL HISTORY: Right flank pain hematuria COMPARISON STUDY: June 08, 2013 TECHNIQUE: CT scan of the abdomen and pelvis was performed from the lung bases to the proximal femurs. Images are reviewed in the axial, sagittal, and coronal planes. IV contrast was not administered for this examination. A dose lowering technique was utilized adhering to the principles of ALARA. CT DOSE: 621.06 mGy.cm FINDINGS: Lower chest: The heart is normal in size and configuration, without pericardial effusion. The lung bases and pleural spaces are clear. Liver: The unenhanced liver is normal in size, contour, and attenuation. There is no intrahepatic biliary ductal dilatation. Gallbladder: Unremarkable. Spleen: Normal in size and attenuation. Pancreas: Unremarkable. Adrenal glands: Unremarkable. Kidneys: There are hyperdense renal pyramids. No discrete calculi are visualized. There is no hydronephrosis. No ureteral calculi are visualized. Bowel: There are no transition zones indicate bowel obstruction. There is no evidence of acute diverticulitis. There is no evidence of acute appendicitis Peritoneum: There is no intraperitoneal free air or abdominal ascites. Vasculature: The abdominal aorta is normal in course and caliber. Adenopathy: None. Pelvic viscera: The uterus is enlarged consistent with a recent state. There is a small amount of hyperdense material within the endometrium, likely representing hemorrhage. Skeletal structures: There is infiltration of the subcutaneous tissues and anterior abdominal wall. This likely relates the patient's recent . There is SI joint sclerosis. IMPRESSION: 1. Hyperdense renal pyramids. No renal or ureteral or bladder calculi identified 2. No evidence of acute appendicitis. No evidence of acute diverticulitis 3. Enlarged uterus Electronically signed by: Gerardo Morton M.D. 07/28/2017 6:58 AM Dictated Date/Time: 07/28/2017 6:53 AM
--- NOTE | 2017-07-28 07:19 | DIAGNOSTIC IMAGING REPORT ---
CHEST ONE VIEW PORTABLE CLINICAL HISTORY: Pain, radiating to the abdomen. COMPARISON STUDY: 07/25/2016 FINDINGS: The cardiac and mediastinal contours are normal. There is no evidence of focal pulmonary consolidation. There is no evidence of failure. No pleural effusions are visualized.[ No free intraperitoneal air is visualized. IMPRESSION: No active disease in the chest. Electronically signed by: Gerardo Morton M.D. 07/28/2017 7:17 AM Dictated Date/Time: 07/28/2017 7:17 AM
--- NOTE | 2017-07-28 15:07 | EMERGENCY ROOM VISIT NOTE ---
History Report prepared by Katlin: Jay Brock Under the Supervision of: Dr. Darius Champion M.D. First contact with patient: 22:52 Chief Complaint: FLANK PAIN Stated Complaint: LOWER RT PAIN,NAUSEA,RECOVERING History of Present Illness The patient is a 21 year old female who presents to the Emergency Room with complaints of constant right-sided flank pain beginning four days ago. The patient states that she had a baby two weeks ago. She notes that she had to deliver the baby via a section at 36 weeks due to cholestasis of . She reports that she also had itchy hands and feet during her . The patient states that her liver enzymes improved after her delivery. She notes that she did not have to spend any extra time in the hospital. She reports that she is experiencing pain at the incision site as well as a sharp stabbing pain in her right flank that started four days ago. She also complains of nausea, chills, urinary symptoms, and hot flashes. The patient states that it takes her a while to start urinating whenever she goes to the bathroom. She notes that her pain worsens when she walks. She denies any vaginal discharge and rash. She reports that she took Tylenol and Aleve with no relief of her symptoms. The patient states she has no previous history of kidney stones and kidney infections. She rates her pain as a 9/10. Source of History: patient Onset: four days ago Position: other (right flank) Symptom Intensity: 9/10 Quality: sharp, stabbing Timing: constant Modifying Factors (Worsening): other (walking) Associated Symptoms: + chills, + nausea, No rash Note: The patient also complains of hot flashes. She notes that it also takes her a while to start urinating whenever she goes to the bathroom. She denies any vaginal discharge. Review of Systems See HPI for pertinent positives & negatives. A total of 10 systems reviewed and were otherwise negative. Past Medical & Surgical Medical Problems: (1) 32 weeks gestation of (2) 36 weeks gestation of (3) Abdominal cramping complicating , antepartum (4) Cholestasis during (5) Cholestasis during in third trimester (6) Diarrhea (7) Elevated alanine aminotransferase (ALT) level (8) Palmar pruritus (9) with 36 completed weeks gestation (10) with 36 completed weeks gestation (11) Uterine cramping (12) Vomiting complicating (13) Wound hematoma following section, Surgical Problems: (1) Previous section (2) S/P tonsillectomy Family History No pertinent family history stated. Social History Smoking Status: Never Smoker Alcohol Use: none Drug Use: none Marital Status: single Housing Status: lives with family Occupation Status: employed Current/Historical Medications Scheduled Without A W/ Fe Fumar (Pnv-Dha), 1 CAP PO DAILY Scheduled PRN Ibuprofen (Ibuprofen), 600 MG PO Q6 PRN for Pain, PHIPPS, Cramping, or Fever Oxycodone Ir (Roxicodone Ir), 1-2 TAB PO Q4H PRN for Pain Oxycodone/Acetaminophen 5MG/325MG (Percocet 5MG/325MG), 1-2 TAB PO Q4H PRN for Pain - Pain Scale 1-5 Allergies Coded Allergies: No Known Allergies (Unverified , 07/27/17) Physical Exam Vital Signs Date Time Temp Pulse Resp B/P (MAP) Pulse Ox O2 Delivery O2 Flow Rate FiO2 07/28/17 00:24 61 18 129/83 98 Room Air 07/27/17 23:43 36.8 64 18 117/72 98 Room Air 07/27/17 21:59 36.7 74 18 140/90 98 Room Air Physical Exam GENERAL: Patient is in no acute distress. HEENT: No acute trauma, normocephalic atraumatic, mucous membranes moist, no nasal congestion, no scleral icterus. NECK: No stridor, no adenopathy, no meningismus, trachea is midline. LUNGS: Clear to auscultation bilaterally, no wheeze, no rhonchi, breath sounds equal. HEART: Without murmurs gallops or rubs, regular rate and rhythm. ABDOMEN: Soft, tender along right mid abdomen and RLQ, bowel sounds positive, no hernias, no peritonitis, c section incision healing well without drainage or infection. BACK: Right flank discomfort with percussion. EXTREMITIES: No cyanosis or edema, full range of motion of all the joints without pain or difficulty, no signs for acute trauma. NEUROLOGIC: Oriented x 3, no acute motor or sensory deficits, no focal weakness. SKIN: No rash, no jaundice, no diaphoresis. Medical Decision & Procedures ER Provider Diagnostic Interpretation: Radiology results as stated below per my review and interpretation: CHEST X-RAY: No pneumothorax. No free air. No mediastinal widening. No pneumonia. CT ABDOMEN & PELVIS Without Contrast: Unremarkable appendix. Medullary nephrocalcinosis. No renal calculi or obstructing ureteral stone. Slightly enlarged uterus with some hemorrhage or other high attenuation debris in the endometrial cavity. Radiologist: Naga Robles M.D. Laboratory Results 07/27/17 23:00 Red Blood Count 4.21, Mean Corpuscular Volume 85.5, Mean Corpuscular Hemoglobin 27.6, Mean Corpuscular Hemoglobin Concent 32.2, Mean Platelet Volume 9.7, Neutrophils (%) (Auto) 56.4, Lymphocytes (%) (Auto) 32.5, Monocytes (%) (Auto) 6.1, Eosinophils (%) (Auto) 4.6, Basophils (%) (Auto) 0.3, Neutrophils # (Auto) 5.88, Lymphocytes # (Auto) 3.39, Monocytes # (Auto) 0.64, Eosinophils # (Auto) 0.48, Basophils # (Auto) 0.03 07/27/17 23:00 Test 07/27/17 23:00 07/27/17 23:21 White Blood Count 10.43 K/uL (4.8-10.8) Red Blood Count 4.21 M/uL (4.2-5.4) Hemoglobin 11.6 g/dL (12.0-16.0) Hematocrit 36.0 % (37-47) Mean Corpuscular Volume 85.5 fL (80-100) Mean Corpuscular Hemoglobin 27.6 pg (25-34) Mean Corpuscular Hemoglobin Concent 32.2 g/dl (32-36) Platelet Count 591 K/uL (130-400) Mean Platelet Volume 9.7 fL (7.4-10.4) Neutrophils (%) (Auto) 56.4 % Lymphocytes (%) (Auto) 32.5 % Monocytes (%) (Auto) 6.1 % Eosinophils (%) (Auto) 4.6 % Basophils (%) (Auto) 0.3 % Neutrophils # (Auto) 5.88 K/uL (1.4-6.5) Lymphocytes # (Auto) 3.39 K/uL (1.2-3.4) Monocytes # (Auto) 0.64 K/uL (0.11-0.59) Eosinophils # (Auto) 0.48 K/uL (0-0.5) Basophils # (Auto) 0.03 K/uL (0-0.2) RDW Standard Deviation 41.5 fL (36.4-46.3) RDW Coefficient of Variation 13.3 % (11.5-14.5) Immature Granulocyte % (Auto) 0.1 % Immature Granulocyte # (Auto) 0.01 K/uL (0.00-0.02) Anion Gap 8.0 mmol/L (3-11) Est Creatinine Clear Calc Drug Dose 95.5 ml/min Estimated GFR () 125.1 Estimated GFR (Non- 107.9 BUN/Creatinine Ratio 30.2 (10-20) Calcium Level 9.3 mg/dl (8.5-10.1) Total Bilirubin 0.5 mg/dl (0.2-1) Aspartate Amino Transf (AST/SGOT) 11 U/L (15-37) Alanine Aminotransferase (ALT/SGPT) 29 U/L (12-78) Alkaline Phosphatase 112 U/L (45-117) Total Protein 7.9 gm/dl (6.4-8.2) Albumin 3.5 gm/dl (3.4-5.0) Globulin 4.4 gm/dl (2.5-4.0) Albumin/Globulin Ratio 0.8 (0.9-2) Lipase 137 U/L (73-393) Urine Color YELLOW Urine Appearance CLEAR (CLEAR) Urine pH 7.0 (4.5-7.5) Urine Specific [place] 1.029 (1.000-1.030) Urine Protein NEG (NEG) Urine Glucose (UA) NEG (NEG) Urine Ketones NEG (NEG) Urine Occult Blood NEG (NEG) Urine Nitrite NEG (NEG) Urine Bilirubin NEG (NEG) Urine Urobilinogen NEG (NEG) Urine Leukocyte Esterase TRACE (NEG) Urine WBC (Auto) 1-5 /hpf (0-5) Urine RBC (Auto) 0-4 /hpf (0-4) Urine Hyaline Casts (Auto) 5-10 /lpf (0-5) Urine Epithelial Cells (Auto) 20-30 /lpf (0-5) Urine Bacteria (Auto) NEG (NEG) Laboratory results reviewed by me. Medications Administered Medications (Trade) Dose Ordered Sig/Dorinda Route Start Time Stop Time Status Last Admin Dose Admin Ondansetron HCl (Zofran Inj) 4 mg NOW STAT IV 07/27/17 23:01 07/27/17 23:03 DC 07/27/17 23:16 4 MG Morphine Sulfate (MoRPHine SULFATE INJ) 4 mg Q30M PRN IV 07/27/17 23:15 07/28/17 00:54 DC 07/27/17 23:16 4 MG Ketorolac Tromethamine (Toradol Inj) 30 mg NOW STAT IV 07/27/17 23:01 07/27/17 23:03 DC 07/27/17 23:17 30 MG Oxycodone HCl (Roxicodone Immediate Rel 5MG Home Pack) 1 homepack UD ONCE PO 07/28/17 00:30 07/28/17 00:31 DC 07/28/17 00:35 1 HOMEPACK ED Course 2255: The patient was evaluated in room C6. A complete history and physical exam was performed. 2301: Toradol Inj 30mg IV, Zofran Inj 4mg IV 0024: I did a PDMP search on the patient. 0030: Oxycodone HCl 1 homepack PO 0044: Reevaluated the patient. Discussed results and discharge instructions: She verbalized understanding and agreement. The patient is ready for discharge. Medical Decision Differential diagnoses include: hematoma, ovarian cyst, appendicitis, biliary colic, renal colic, UTI, and pancreatitis. There is no leukocytosis or concerning anemia. No significant electrolyte abnormality, kidney failure, hepatitis or pancreatitis. Urinalysis does not show infection. Chest film does not show pneumonia or CHF, no free air. Abdominal and pelvis CT shows some nephrocalcinosis, there was no evidence for hydronephrosis or for a ureteral stone. No large area of hematoma, no large ovarian cyst. No bowel obstruction. The patient received IV Toradol, IV Zofran and IV morphine, she seems more comfortable. The cause for her complaints is unclear. I did discuss the case with OB. The patient was felt stable for outpatient follow-up. She will be discharged with a few oxycodone for severe pain. If she develops fever, vomiting or worsening symptoms, she can return for reassessment. [place] Drug Monitoring [place] Search Results: no issues identified Drug Monitoring Findings: The patient was given Percocet on 07/17/2017 after a c section. Medication Reconcilliation Current Medication List: was personally reviewed by me Blood Pressure Screening Patient's blood pressure: Normal blood pressure Blood pressure disposition: Did not require urgent referral Consults Time Called: [phone] Consulting Physician: WINSTON Ernst Returned Call: [phone] I discussed the patients case with WINSTON Jaeger. She states that the patient can go home with an outpatient OB follow up this week. Impression Primary Impression: Right flank pain Additional Impression: S/P Scribe Attestation The scribe's documentation has been prepared under my direction and personally reviewed by me in its entirety. I confirm that the note above accurately reflects all work, treatment, procedures, and medical decision making performed by me. Departure Information Dispostion Home / Self-Care Prescriptions Oxycodone Ir (Roxicodone Ir) 5 Mg Tab 1-2 TAB PO Q4H Y for Pain, #6 TAB Prov: Darius Champion M.D. 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
== END 2017-07-28 00:38 | disposition home or self-care (01) ==
LOC: C.EDB 21:03 → C.EDC 07-28 00:38
DX: R10.813 Right lower quadrant abdominal tenderness (principal); E83.59 Other disorders of calcium metabolism; N29 Other disorders of kidney and ureter in diseases classified elsewhere; Z98.891 History of uterine scar from previous surgery

== ENCOUNTER → 2017-08-28 | Outpatient (CLI) | payer OTHER ==
[~2017-08-28] MED LIST changes: +OXYC1TAB3 PO; +SERT50TA PO; +SULF800T23 PO
== END | disposition home or self-care (01) ==
LOC: C.LAB1850 14:36
PROVIDERS: ATTEND Obstetrics & Gynecology
DX: N91.2 Amenorrhea, unspecified (principal)

== ENCOUNTER 2017-08-30 22:01 | Emergency (ER) | payer OTHER ==
[~2017-08-30] VITALS: Ht 149.9 cm; Wt 69.9 kg
[~2017-08-30 22:01] MED LIST changes: -SERT50TA PO; -SULF800T23 PO
[2017-08-30 22:10] VITALS: Ht 149.9 cm; Wt 69.9 kg
[2017-08-30] MEDS ORDERED: SODIUM CHLORIDE 0.9% 1000ML 1,000 ML IV STA (22:28)
[2017-08-30] MEDS ORDERED: ONDANSETRON INJ 2 MG/ML 2 ML VIAL IV STA (22:28)
[2017-08-30] MEDS ORDERED: KETOROLAC TROMETHAMINE 30 MG/ML VIAL IV STA (22:28)
--- NOTE | 2017-08-30 22:28 | EMERGENCY ROOM VISIT NOTE ---
History Report prepared by Katlin: Erma Levy Under the Supervision of: Dr. Natividad Farrar D.O. First contact with patient: 22:12 Chief Complaint: FEVER Stated Complaint: FEVER 102.9,BACK PAIN,CHILLS,PAINFUL URINATION,PHIPPS History of Present Illness The patient is a 21 year old female who presents to the Emergency Room with complaints of of a persistent fever that started earlier today. The patient rates her pain a 7/10 in severity. The patient reports she had burning with urination 1 week ago. She notes her urine was cloudy. She also has back pain, nausea, vomiting, diarrhea, chills, and dizziness. She reports her diarrhea started 1 week ago and it has been persistent for the past week. She notes she has 6 episodes per day and it was black in the beginning but now it is a "greenish" color. She states there was blood on the tissue when she wipes. The patient reports she has right sided abdominal pain. She states she was taking Zoloft after her but stopped taking it 1 week ago. Patient is not breast-feeding. This is patient's second . Pt had her post follow-up visit with her [employer] this past . Source of History: patient Onset: yesterday Position: other (fever) Symptom Intensity: 7/10 Timing: other (persistent) Associated Symptoms: + chills, + nausea, + vomiting, + back pain, + diarrhea , + urinary symptoms Review of Systems See HPI for pertinent positives & negatives. A total of 10 systems reviewed and were otherwise negative. Past Medical & Surgical Medical Problems: (1) 32 weeks gestation of (2) 36 weeks gestation of (3) Abdominal cramping complicating , antepartum (4) Cholestasis during (5) Cholestasis during in third trimester (6) Diarrhea (7) Elevated alanine aminotransferase (ALT) level (8) Palmar pruritus (9) with 36 completed weeks gestation (10) with 36 completed weeks gestation (11) Uterine cramping (12) Vomiting complicating (13) Wound hematoma following section, Surgical Problems: (1) Previous section (2) S/P tonsillectomy Family History No pertinent family history Social History Smoking Status: Never Smoker Alcohol Use: none Drug Use: none Marital Status: single Housing Status: lives with family Occupation Status: employed Current/Historical Medications Scheduled Sertraline (Zoloft), 50 MG PO DAILY Sulfa/Trimethoprim (Bactrim Ds 800MG/160MG), 1 TAB PO BID Allergies Coded Allergies: No Known Allergies (Unverified , 07/27/17) Physical Exam Vital Signs Date Time Temp Pulse Resp B/P (MAP) Pulse Ox O2 Delivery O2 Flow Rate FiO2 08/31/17 00:26 37.2 80 16 124/75 97 Room Air 08/30/17 23:19 37.3 76 16 120/73 97 Room Air 08/30/17 22:10 37.0 141 20 116/71 97 Room Air Physical Exam GENERAL: alert, uncomfortable appearing, well nourished, no distress, non-toxic EYE EXAM: normal conjunctiva, PERRL and EOM's grossly intact OROPHARYNX: no exudate, no erythema, lips, buccal mucosa, and tongue normal and mucous membranes are moist NECK: supple, no nuchal rigidity, no adenopathy, non-tender LUNGS: Clear to auscultation. Normal chest wall mechanics, no w/r/r HEART: no murmurs, S1 normal and S2 normal ABDOMEN: abdomen soft, mild lower abdominal tenderness, normo-active bowel sounds, no masses, no rebound or guarding. Well healed Pfannenstiel incision. BACK: Back is symmetrical on inspection and there is no deformity, no midline tenderness, positive CVA tenderness left greater than right. SKIN: no rashes and no bruising UPPER EXTREMITIES: upper extremities are grossly normal. FROM, nml pulses. LOWER EXTREMITIES: No pitting edema. FROM, nml pulses. NEURO EXAM: Normal sensorium, cranial nerves II-XII [grossly] intact, normal speech, no [gross] weakness of arms, no [gross] weakness of legs. Medical Decision & Procedures ER Provider Diagnostic Interpretation: Radiology results have been interpreted by the radiologist and reviewed by me. CT ABDOMEN & PELVIS With Contrast: No acute findings in the abdomen or pelvis. Small amount of free fluid in pelvic cul-de-sac, likely physiologic. Appendix is normal. 3.6 cm left ovarian cyst. Recommend routine follow-up ultrasound. Postoperative changes related to prior . Laboratory Results 08/30/17 23:00 Red Blood Count 3.96, Mean Corpuscular Volume 83.6, Mean Corpuscular Hemoglobin 26.5, Mean Corpuscular Hemoglobin Concent 31.7, Mean Platelet Volume 9.7, Neutrophils (%) (Auto) 90.4, Lymphocytes (%) (Auto) 6.1, Monocytes (%) (Auto) 2.8, Eosinophils (%) (Auto) 0.3, Basophils (%) (Auto) 0.1, Neutrophils # (Auto) 12.59, Lymphocytes # (Auto) 0.85, Monocytes # (Auto) 0.39, Eosinophils # (Auto) 0.04, Basophils # (Auto) 0.02 08/30/17 23:00 Test 08/30/17 23:00 08/30/17 23:04 08/30/17 23:59 White Blood Count 13.93 K/uL (4.8-10.8) Red Blood Count 3.96 M/uL (4.2-5.4) Hemoglobin 10.5 g/dL (12.0-16.0) Hematocrit 33.1 % (37-47) Mean Corpuscular Volume 83.6 fL (80-100) Mean Corpuscular Hemoglobin 26.5 pg (25-34) Mean Corpuscular Hemoglobin Concent 31.7 g/dl (32-36) Platelet Count 401 K/uL (130-400) Mean Platelet Volume 9.7 fL (7.4-10.4) Neutrophils (%) (Auto) 90.4 % Lymphocytes (%) (Auto) 6.1 % Monocytes (%) (Auto) 2.8 % Eosinophils (%) (Auto) 0.3 % Basophils (%) (Auto) 0.1 % Neutrophils # (Auto) 12.59 K/uL (1.4-6.5) Lymphocytes # (Auto) 0.85 K/uL (1.2-3.4) Monocytes # (Auto) 0.39 K/uL (0.11-0.59) Eosinophils # (Auto) 0.04 K/uL (0-0.5) Basophils # (Auto) 0.02 K/uL (0-0.2) RDW Standard Deviation 44.1 fL (36.4-46.3) RDW Coefficient of Variation 14.3 % (11.5-14.5) Immature Granulocyte % (Auto) 0.3 % Immature Granulocyte # (Auto) 0.04 K/uL (0.00-0.02) Anion Gap 9.0 mmol/L (3-11) Est Creatinine Clear Calc Drug Dose 72.9 ml/min Estimated GFR () 89.4 Estimated GFR (Non- 77.1 BUN/Creatinine Ratio 18.3 (10-20) Calcium Level 8.8 mg/dl (8.5-10.1) Total Bilirubin 0.3 mg/dl (0.2-1) Aspartate Amino Transf (AST/SGOT) 13 U/L (15-37) Alanine Aminotransferase (ALT/SGPT) 17 U/L (12-78) Alkaline Phosphatase 94 U/L (45-117) Total Protein 7.3 gm/dl (6.4-8.2) Albumin 3.3 gm/dl (3.4-5.0) Globulin 4.0 gm/dl (2.5-4.0) Albumin/Globulin Ratio 0.8 (0.9-2) Lipase 89 U/L (73-393) Bedside Lactic Acid Venous 1.32 mmol/L (0.90-1.70) Urine Color YELLOW Urine Appearance CLOUDY (CLEAR) Urine pH 6.0 (4.5-7.5) Urine Specific [place] 1.013 (1.000-1.030) Urine Protein NEG (NEG) Urine Glucose (UA) NEG (NEG) Urine Ketones NEG (NEG) Urine Occult Blood 3+ (NEG) Urine Nitrite NEG (NEG) Urine Bilirubin NEG (NEG) Urine Urobilinogen NEG (NEG) Urine Leukocyte Esterase LARGE (NEG) Urine WBC (Auto) >30 /hpf (0-5) Urine RBC (Auto) 0-4 /hpf (0-4) Urine Hyaline Casts (Auto) 1-5 /lpf (0-5) Urine Epithelial Cells (Auto) >30 /lpf (0-5) Urine Bacteria (Auto) 2+ (NEG) Laboratory results per my review. Medications Administered Medications (Trade) Dose Ordered Sig/Dorinda Route Start Time Stop Time Status Last Admin Dose Admin Sodium Chloride 1,000 ml @ 999 mls/hr Q1H1M STAT IV 08/30/17 22:28 08/30/17 23:28 DC 08/30/17 23:16 999 MLS/HR Ketorolac Tromethamine (Toradol Inj) 30 mg NOW STAT IV 08/30/17 22:28 08/30/17 22:30 DC 08/30/17 23:16 30 MG Ondansetron HCl (Zofran Inj) 4 mg NOW STAT IV 08/30/17 22:28 08/30/17 22:30 DC 08/30/17 23:16 4 MG Acetaminophen (Tylenol Tab) 1,000 mg NOW STAT PO 08/31/17 00:30 08/31/17 00:31 DC 08/31/17 00:38 1,000 MG Fentanyl Citrate (Fentanyl Inj) 50 mcg NOW ONCE IV 08/31/17 00:30 08/31/17 00:31 DC 08/31/17 00:38 50 MCG Ceftriaxone Sodium (Rocephin Inj) 1 gm NOW STAT IV 08/31/17 00:58 08/31/17 00:59 DC 08/31/17 01:25 1 GM Oxycodone HCl (Roxicodone Immediate Rel Tab) 5 mg NOW STAT PO 08/31/17 01:08 08/31/17 01:09 DC 08/31/17 01:25 5 MG ECG Per My Interpretation Indication: tachycardia Rate (beats per minute): 79 Rhythm: sinus rhythm Findings: no acute ischemic change, no ectopy, other (normal intervals, normal axis) ED Course 2212: The patient was evaluated in room A12B. A complete history and physical exam was performed. 2228: Zofran Inj 4 mg IV, Toradol Inj 30 mg IV, Sodium Chloride 1000 ml @ 999 mls/hr IV. 0030: Fentanyl Inj 50 mcg IV, Tylenol Tab 1000 mg PO. 0058: Rocephin Inj 1 gm IV. 0105: I rechecked the patient and she states she is still having abdominal pain but she does not have anymore nausea. 0108: Oxycodone HCl 5 mg PO. []: Upon reevaluation, the patient is feeling better. I discussed the findings and the treatment plan with the patient. She verbalizes agreement and understanding. She was discharged home. Medical Decision Differential diagnosis: Etiologies such as appendicitis, diverticulitis, PUD, biliary pathology, UTI, pancreatitis, obstruction, mesenteric ischemia, aortic pathology, infections, inflammatory bowel disease, renal colic, as well as others were entertained. Medication Reconcilliation Current Medication List: was personally reviewed by me Blood Pressure Screening Patient's blood pressure: Normal blood pressure Impression Primary Impression: Pyelonephritis Additional Impressions: Fever Diarrhea Anemia Scribe Attestation The scribe's documentation has been prepared under my direction and personally reviewed by me in its entirety. I confirm that the note above accurately reflects all work, treatment, procedures, and medical decision making performed by me. Departure Information Dispostion Home / Self-Care Prescriptions Sulfa/Trimethoprim (Bactrim Ds 800MG/160MG) Tab 1 TAB PO BID, #28 TAB Prov: Natividad Farrar, DO 08/31/17 Patient Instructions My [facility] Additional Instructions Please drink plenty of fluids. You may use Tylenol and ibuprofen as needed for pain. If you use the stronger pain medication, please monitor for constipation and consider using a stool softener. You may not take the stronger pain medication and drive. Please take the antibiotics daily as prescribed. Please consider using a probiotic while you are on antibiotics. Please have your family doctor recheck your condition next week to assure that you are improving. Please also discussed with him the recent stoppage of your Zoloft. Abrupt stoppage of medication such as that can lead to adverse side effects or withdrawal symptoms. If you develop worsening pain, persistent symptoms, persistent or worsening diarrhea, noticed black or bloody stools, develop recurrent vomiting, abnormal vaginal discharge, or you have any other new concerns, please return the emergency room. Problem Qualifiers Additional Impressions: Fever Fever type: unspecified Qualified Codes: R50.9 - Fever, unspecified Diarrhea Diarrhea type: unspecified type Qualified Codes: R19.7 - Diarrhea, unspecified Anemia Anemia type: other cause Other causes of anemia: other cause, not classified Qualified Codes: D64.89 - Other specified anemias
[2017-08-30] MEDS ORDERED: SERT50TA PO (22:37)
[2017-08-30] MEDS ORDERED: OPTIRAY 320 IV PRN (22:45)
[2017-08-30 23:11] LABS: BASO % 0.1 %; BASO ABS # 0.02 K/uL (0-0.2); EOS % 0.3 %; EOS ABS # 0.04 K/uL (0-0.5); HEMATOCRIT 33.1 % (37-47); HEMOGLOBIN 10.5 g/dL (12.0-16.0); IG# 0.04 K/uL (0.00-0.02); LYMPH % 6.1 %; LYMPH ABS # 0.85 K/uL (1.2-3.4); MEAN CELL VOLUME 83.6 fL (80-100); MEAN CORPUSCULAR HEMOGLOBIN 26.5 pg (25-34); MEAN CORPUSCULAR HGB CONC 31.7 g/dl (32-36); MEAN PLATELET VOLUME 9.7 fL (7.4-10.4); MONO % 2.8 %; MONO ABS # 0.39 K/uL (0.11-0.59); NEUT % 90.4 %; NEUT ABS # 12.59 K/uL (1.4-6.5); PLATELET COUNT 401 K/uL (130-400); RED CELL DISTRIBUTION WIDTH CV 14.3 % (11.5-14.5); RED CELL DISTRIBUTION WIDTH SD 44.1 fL (36.4-46.3); WHITE BLOOD COUNT 13.93 K/uL (4.8-10.8)
[2017-08-30 23:28] LABS: ALBUMIN 3.3 gm/dl (3.4-5.0); CALCIUM 8.8 mg/dl (8.5-10.1); CREATININE 1.03 mg/dl (0.60-1.20); POTASSIUM 3.3 mmol/L (3.5-5.1)
[2017-08-30 23:31] LABS: TOTAL PROTEIN 7.3 gm/dl (6.4-8.2)
[2017-08-31 00:26] VITALS: TEMP 37.2
[2017-08-31] MEDS ORDERED: ACETAMINOPHEN 500 MG TAB PO STA (00:30)
[2017-08-31] MEDS ORDERED: FENTANYL CITRATE INJ 50 MCG/1 ML 2 ML VIAL IV ONE (00:30)
[2017-08-31] MEDS ORDERED: CEFTRIAXONE SOD INJ 1 GM ADDVIAL IV STA (00:58)
[2017-08-31] MEDS ORDERED: OXYCODONE HCL IR 5 MG TAB (IMMEDIATE RELEASE) PO STA (01:08)
[2017-08-31] MEDS ORDERED: SULF800T23 PO (01:53)
[2017-08-31] MEDS ORDERED: PERCOCET HOME PACK PO ONE (02:00)
[2017-08-31 02:10] VITALS: BP 109/63; PULSE 79; O2SAT 96
--- NOTE | 2017-08-31 07:37 | DIAGNOSTIC IMAGING REPORT ---
ABDOMEN AND PELVIS CT WITH IV CONTRAST CT DOSE: 417.45 mGy.cm HISTORY: f/c, diarrhea, nausea, vomiting, lower abd pain, dysuria, s/p C/S TECHNIQUE: Multiaxial CT images of the abdomen and pelvis were performed following the use of intravenous contrast. A dose lowering technique was utilized adhering to the principles of ALARA. COMPARISON STUDY: Abdomen and pelvis CT 07/27/2017. FINDINGS: Mild bladder wall thickening. There is also mild urothelial thickening within the bilateral renal pelvises and ureters. No ureteral stones or hydronephrosis. The kidneys enhance normally. The lung bases are clear. No pneumoperitoneum. No pneumatosis. Postoperative changes within the lower anterior abdominal wall consistent with prior . No acute fractures within the visualized osseous structures. The gallbladder is contracted. No hepatic or splenic masses. The adrenal glands and pancreas are unremarkable. No retroperitoneal lymphadenopathy. A 3.4 cm left ovarian cyst. Normal right ovary. Trace pelvic free fluid. This is likely physiologic. No bowel wall thickening or obstruction. Normal appendix. IMPRESSION: 1. Mild bladder wall thickening. There is also urothelial thickening of the bilateral renal pelvises and ureters. This is consistent with a cystitis/pyelitis. Recommend correlation with urinalysis. The kidneys enhance normally. 2. No bowel wall thickening or obstruction. 3. No renal or ureteral calculi. No hydronephrosis. 4. Normal appendix. 5. A 3.4 cm left ovarian cyst. Electronically signed by: Curtis Plascencia M.D. 08/31/2017 7:36 AM Dictated Date/Time: 08/31/2017 7:29 AM
--- NOTE | 2017-09-02 13:00 | Pharmacy Progress Note ---
ED Pharmacist Culture FollowUp Date of Service: September 02, 2017. Patient's urine culture growing E. coli resistant to Bactrim. Discussed with Dr. Cox, will change bactrim to cefdinir 300 mg BID x 10 days. Called patient and left message ~1300.
== END 2017-08-31 02:10 | disposition home or self-care (01) ==
LOC: C.EDB 22:03 → C.EDA 08-31 02:10
DX: N12 Tubulo-interstitial nephritis, not specified as acute or chronic (principal); R50.9 Fever, unspecified; R19.7 Diarrhea, unspecified; D64.89 Other specified anemias; Z79.899 Other long term (current) drug therapy

== ENCOUNTER 2017-12-20 12:42 | Emergency (ER) | payer OTHER ==
[~2017-12-20] VITALS: Ht 149.9 cm; Wt 72.1 kg
[~2017-12-20 12:42] MED LIST changes: -MTR600X PO; -OXYC-57 PO; -OXYC1TAB3 PO; -PRENCAP38 PO; +SERT50TA PO; +SULF800T23 PO
[2017-12-20 12:44] VITALS: TEMP 36.8; Ht 149.9 cm; Wt 72.1 kg
[2017-12-20] MEDS ORDERED: LIDOCAINE HCL 2% VISC SOLN 20 ML UDC PO STA (13:16)
[2017-12-20] MEDS ORDERED: ALUMINUM/MAGNESIUM SUSP 30 ML UDC PO STA (13:16)
--- NOTE | 2017-12-20 13:26 | DIAGNOSTIC IMAGING REPORT ---
CHEST 2 VIEWS ROUTINE HISTORY: 22 years-old Female chest pain acute atypical chest pain COMPARISON: Chest radiograph 07/27/2017 TECHNIQUE: PA and lateral views of the chest FINDINGS: Cardiomediastinal and hilar silhouettes are within normal limits. There is no pneumothorax, pleural effusion, focal airspace consolidation or overt pulmonary edema. Bones of the chest appear grossly intact. IMPRESSION: No acute process. The above report was generated using voice recognition software. It may contain grammatical, syntax or spelling errors. Electronically signed by: Cleve Scott M.D. 12/20/2017 1:24 PM Dictated Date/Time: 12/20/2017 1:23 PM
--- NOTE | 2017-12-20 13:31 | EMERGENCY ROOM VISIT NOTE ---
History Report prepared by Katlin: Shey Richey Under the Supervision of: Dr. Nivia Cox M.D. First contact with patient: 12:56 Chief Complaint: CARDIAC ASSESSMENT Stated Complaint: CHEST PAIN, PAIN WHEN SWALLOWING,TROUBLE BREATHING Nursing Triage Summary: pt reports heartburn/epigastric pain on and off since 99, SOB, pain with deep breathing or coughing. burning sensation in throat and pain between shoulder blades. History of Present Illness The patient is a 22 year old female who presents to the Emergency Room with complaints of constant chest "tightness" for 36 hours. The patient states that she woke up early in the morning and she thought she had heartburn. She states that her chest was tight all over, her back hurt, it hurt for her to breathe, and she had trouble breathing. The patient states that she took some Tums to help with her chest pain, but states that when she swallowed it hurt her throat. The patient states that she went back to sleep and states that the pain was worse when she woke up. She states that she has pain in her throat when she eats and burps. The patient denies any coughing or abdominal pain. The patient states that she never gets the hiccups but states that she had them constantly two days before her symptoms began. She states that she has been constipated and was unable to have a bowel movement for two days but states that this is sometimes a normal pattern for her. The patient states that she had a small bowel movement before she came to the ED today. She states that she has not been eating well because it hurts her throat to eat. She states that she had a control bar in her arm that she got put in about three months ago. She states that she was not drinking the night before this began. The patient also states that she does not smoke. She states that she still has her gallbladder. Source of History: patient Onset: 36 hours ago Position: chest Quality: other (tightness ) Timing: constant Associated Symptoms: + SOB, + back pain, No cough, No abdominal pain Note: additional symptoms: sore throat, constipated Review of Systems See HPI for pertinent positives & negatives. A total of 10 systems reviewed and were otherwise negative. Past Medical & Surgical Medical Problems: (1) 32 weeks gestation of (2) 36 weeks gestation of (3) Abdominal cramping complicating , antepartum (4) Cholestasis during (5) Cholestasis during in third trimester (6) Diarrhea (7) Elevated alanine aminotransferase (ALT) level (8) Palmar pruritus (9) with 36 completed weeks gestation (10) with 36 completed weeks gestation (11) Uterine cramping (12) Vomiting complicating (13) Wound hematoma following section, Surgical Problems: (1) Previous section (2) S/P tonsillectomy Family History No pertinent family history Social History Smoking Status: Never Smoker Alcohol Use: none Drug Use: none Marital Status: single Housing Status: lives with family Occupation Status: employed Current/Historical Medications Scheduled Pantoprazole (Protonix), 40 MG PO BID Ranitidine Hcl (Zantac), 150 MG PO BID Sertraline (Zoloft), 50 MG PO DAILY Allergies Coded Allergies: No Known Allergies (Unverified , 07/27/17) Physical Exam Vital Signs Date Time Temp Pulse Resp B/P (MAP) Pulse Ox O2 Delivery O2 Flow Rate FiO2 12/20/17 14:14 67 18 121/73 99 Room Air 12/20/17 12:49 99 Room Air 12/20/17 12:44 36.8 86 18 153/88 98 Room Air Physical Exam Vital signs reviewed. General: Well-appearing 22 year old female, in no significant distress. HEENT: No scleral icterus, PERRLA, neck supple. Atraumatic. Cardiovascular: Regular rate and rhythm, no extra sounds. Pulmonary: Clear to auscultation bilaterally, normal work of breathing. Abdomen: Soft, nontender, nondistended, positive bowel sounds. Musculoskeletal: Atraumatic, no peripheral edema. Neurologic: Patient awake alert and oriented x 3 Skin: Warm, dry, no rash Medical Decision & Procedures ER Provider Diagnostic Interpretation: Radiology results as stated below per my review and radiologist interpretation: CHEST 2 VIEWS ROUTINE HISTORY: 22 years-old Female chest pain acute atypical chest pain COMPARISON: Chest radiograph 07/27/2017 TECHNIQUE: PA and lateral views of the chest FINDINGS: Cardiomediastinal and hilar silhouettes are within normal limits. There is no pneumothorax, pleural effusion, focal airspace consolidation or overt pulmonary edema. Bones of the chest appear grossly intact. IMPRESSION: No acute process. The above report was generated using voice recognition software. It may contain grammatical, syntax or spelling errors. Electronically signed by: Cleve Scott M.D. 12/20/2017 1:24 PM Dictated Date/Time: 12/20/2017 1:23 PM KUB HISTORY: Acute generalized abdominal pain with constipation constipation COMPARISON: Chest radiograph of same day, CT abdomen and pelvis 08/31/2017 FINDINGS: The bowel gas pattern is non-obstructive. Mild to moderate volume of formed stool is noted throughout the colon suggesting constipation. 2 mm calcification of the left hemipelvis suggest probable phlebolith. There is no organomegaly. No renal calculi. No ureteral calculi. No pneumoperitoneum or pneumatosis. No fracture. IMPRESSION: 1. Nonobstructive bowel gas pattern. 2. Suggested constipation. Electronically signed by: Cleve Scott M.D. 12/20/2017 1:41 PM Dictated Date/Time: 12/20/2017 1:39 PM Medications Administered Medications (Trade) Dose Ordered Sig/Dorinda Route Start Time Stop Time Status Last Admin Dose Admin Lidocaine HCl (Viscous Lidocaine 2% Soln) 10 ml NOW STAT PO 12/20/17 13:16 12/20/17 13:17 DC 12/20/17 13:24 10 ML Al Hydroxide/Mg Hydroxide (Maalox Susp) 30 ml NOW STAT PO 12/20/17 13:16 12/20/17 13:17 DC 12/20/17 13:24 30 ML Pantoprazole Sodium (Protonix Tab) 40 mg NOW STAT PO 12/20/17 14:00 12/20/17 14:02 DC 12/20/17 14:12 40 MG Ranitidine HCl (zANTac TAB) 150 mg NOW ONCE PO 12/20/17 14:00 12/20/17 14:02 DC 12/20/17 14:12 150 MG ECG Per My Interpretation Indication: chest pain Rate (beats per minute): 72 Rhythm: normal sinus Findings: no ectopy, other (no ischemia ) ED Course 1314: Past medical records reviewed. The patient was evaluated in room B12. A complete history and physical examination was performed. 1316: Ordered Maalox Susp 30 ml PO and Lidocaine HCl 10 ml PO. 1358: I checked on the patient. She states that the numbing medicine makes things worse. 1400: Ordered Zantac Tab 150 mg PO and Protonix Tab 40 mg PO. 1413: Upon reevaluation, the patient appeared to have improvement of her symptoms. I discussed findings with her. She verbalized agreement of the treatment plan. She was discharged home. Medical Decision Differential diagnosis: Etiologies such as cardiac ischemia, aortic dissection, pulmonary embolism, pneumonia, pneumothorax, musculoskeletal, infections, pericarditis, myocarditis , esophageal rupture, gastrointestinal, as well as others were entertained. This pt was was evaluated and appeared to be in no significant distress. IV access was obtained and laboratory work was drawn. Patient was placed on youth nutritional monitor and found to be in a normal sinus rhythm. Patient was given a GI cocktail. Patient had some resolution of her symptoms. Chest x-ray was obtained and is clear. Abdominal x-ray series reveals mild constipation. Patient was placed on Protonix and Zantac. Patient was encouraged to establish with a primary care physician as soon as possible. She will return to the ED for worsening of symptoms or any medical concerns. Medication Reconcilliation Current Medication List: was personally reviewed by me Blood Pressure Screening Patient's blood pressure: Normal blood pressure Impression Primary Impression: Esophagitis with gastritis Scribe Attestation The scribe's documentation has been prepared under my direction and personally reviewed by me in its entirety. I confirm that the note above accurately reflects all work, treatment, procedures, and medical decision making performed by me. Departure Information Dispostion Home / Self-Care Prescriptions Ranitidine Hcl (ZANTAC) 150 Mg Tab 150 MG PO BID, #60 TAB Prov: Nivia Cox M.D. 12/20/17 Pantoprazole (PROTONIX) 40 Mg Tab 40 MG PO BID, #60 TAB Prov: Nivia Cox M.D. 12/20/17 Referrals No Doctor, Assigned (PCP) Forms IMPORTANT VISIT INFORMATION Patient Instructions My [facility] Additional Instructions Diagnosis: Esophagitis Protonix 40 mg twice daily for 2 weeks, then once daily. Zantac 150 mg twice daily as needed for additional symptoms. Avoid coffee, soda, alcohol. Avoid aspirin, Aleve, ibuprofen, greasy and spicy foods. Establish care with a primary care physician as soon as possible. Return to the emergency department for worsening of symptoms or any medical concerns.
--- NOTE | 2017-12-20 13:42 | DIAGNOSTIC IMAGING REPORT ---
KUB HISTORY: Acute generalized abdominal pain with constipation constipation COMPARISON: Chest radiograph of same day, CT abdomen and pelvis 08/31/2017 FINDINGS: The bowel gas pattern is non-obstructive. Mild to moderate volume of formed stool is noted throughout the colon suggesting constipation. 2 mm calcification of the left hemipelvis suggest probable phlebolith. There is no organomegaly. No renal calculi. No ureteral calculi. No pneumoperitoneum or pneumatosis. No fracture. IMPRESSION: 1. Nonobstructive bowel gas pattern. 2. Suggested constipation. Electronically signed by: Cleve Scott M.D. 12/20/2017 1:41 PM Dictated Date/Time: 12/20/2017 1:39 PM
[2017-12-20] MEDS ORDERED: PANTOprazole SOD 40 MG TAB PO STA (14:00)
[2017-12-20] MEDS ORDERED: RANITIDINE HCL 150 MG TAB PO ONE (14:00)
[2017-12-20 14:14] VITALS: BP 121/73; PULSE 67; O2SAT 99
[2017-12-20] MEDS ORDERED: PANT1TAB3 PO (14:25)
[2017-12-20] MEDS ORDERED: RANI150T3 PO (14:25)
== END 2017-12-20 14:37 | disposition home or self-care (01) ==
LOC: C.EDB 12:43
DX: K29.70 Gastritis, unspecified, without bleeding (principal); K20.9 Esophagitis, unspecified; Z79.899 Other long term (current) drug therapy

== ENCOUNTER 2019-12-08 16:04 | Observation (INO) ==
[2019-12-08] MEDS ORDERED: ONDANSETRON INJ 2 MG/ML 2 ML VIAL IV STA (16:50)
[2019-12-08] MEDS ORDERED: SODIUM CHLORIDE 0.9% 1000ML 1,000 ML IV SCH (17:00)
--- NOTE | 2019-12-08 17:00 | Emergency Department Note ---
History of Present Illness General Chief Complaint: Abdominal Pain Stated Complaint: ABDOMINAL PAIN, NAUSEA, DIZZY, ECTOPIC Time Seen by Provider: 12/08/19 16:42 History of Present Illness Provider Complaint: abdominal pain Onset (ago): 2 day(s) Pain Consistency: intermittent Location: LLQ, RLQ and suprapubic Radiation: none Migration to: no migration Severity: severe Maximum Pain Intensity: 10 Current Pain Intensity: 9 Quality: + cramping Exacerbated By: + nothing Associated Symptoms: + nausea and + vomiting; no diarrhea, no fever, no constipation, no dysuria, no hematemesis, no hematochezia, no melena and no hematuria 24-year-old G3, P2 presented to the emergency department for abdominal pain. Patient reports she is been having crampy abdominal pain for last 2 days. Pain is located in her lower abdomen. She denies any vaginal bleeding. She does report vaginal discharge that is white. She states that she has been having nausea and vomiting similar to her previous other 2 pregnancies. Patient has no other complications in her previous pregnancies. She denies any fever. She denies any cough. No loss of taste or smell. Patient states she was at her first OB appointment today and saw Dr. Olea of [facility]URANCE CLAIMS SPECIALIST who sent her here for formal ultrasound to make sure she does not have an ectopic p regnancy given she was unable to visualize any IUP on the ultrasound that she did in the office. Related Data Patient Confirmed : Yes Home Medications Home Medications Medication Instructions Recorded Confirmed Type prenat.vits,nishi,bdc-gbwq-uyays 1 tab PO DAILY 12/02/19 12/08/19 History quetiapine 100 mg tablet 100 mg PO DAILY 12/02/19 12/08/19 History Allergies Allergy/AdvReac Type Severity Reaction Status Date / Time No Known Allergies Allergy Verified 12/08/19 14:53 Past Med/Surg History Medical History (Updated 12/08/19 @ 17:16 by Wood Yang) 32 weeks gestation of 36 weeks gestation of Abdominal cramping Abdominal cramping complicating , antepartum Abdominal pain Abnormal bruising Amenorrhea Bipolar disorder control counseling Carrier of group B Streptococcus Cholestasis during in third trimester Diarrhea Dysmenorrhea Elevated alanine aminotransferase (ALT) level Elevated serum globulin level Encounter for visit Esophagitis with gastritis Fatigue Gardnerella infection History of fracture of upper extremity Itching Nausea & vomiting Nexplanon insertion Obesity Ovarian cyst, left Palmar pruritus Post-op bleeding depression with 36 completed weeks gestation with 36 completed weeks gestation Right flank pain Urinary symptom or sign Urinary tract infection Urinary tract infection Uterine cramping Vaginal bleeding Varicella vaccination Vomiting complicating Wound hematoma following section, Surgical History History of surgical procedure Linda Treat of fracture of the ulnar shaft, with manipulation Hx of tonsillectomy Previous delivery affecting , antepartum S/P x2 S/P wisdom tooth extraction Family History Father Alcohol abuse Mother Anxiety Depression Diabetes Hypertension Grandfather (Maternal) Cancer Grandmother No problems noted. 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 Feels Safe at Home: Yes Dental Care, Regularly: Yes Physical Activity Frequency: 3-4 Times per Week Review of Systems A total of 10 systems reviewed and were otherwise negative Physical Exam Vital Signs: Vital Signs - 24 hr 12/08/19 16:30 Temperature 36.9 C Temperature Source Oral Pulse Rate 72 Respiratory Rate 18 Blood Pressure 140/88 Blood Pressure Kati n 105 Pulse Oximetry 100 Oxygen Delivery Me thod Room Air Sepsis Recent Feve r Within 48 Hours No Sepsis New/Unexpla ined Change in Men randa Status No Sepsis Action Take n by Nursing No Action Required Physical Exam: Physical Exam GENERAL: She is oriented to person, place, and time. She appears well-developed and well-nourished. She does not appear distressed. HENT: Exam performed. -Head: Normocephalic and atraumatic. -Right Ear: External ear normal. No mastoid tenderness. -Left Ear: External ear normal. No mastoid tenderness. -Mouth/Throat: The oropharynx is clear and moist. No trismus in the jaw. No dental abscesses or uvula swelling. No oropharyngeal exudate or tonsillar abscesses. EYES: Conjunctivae and EOM are normal. Pupils are equal, round, and reactive to light. Right eye exhibits no discharge. Left eye exhibits no discharge. No scleral icterus. NECK: Normal range of motion. Neck supple. No JVD present. No spinous process tenderness present. No carotid bruit present. No rigidity. No tracheal deviation and normal range of motion present. No Brudzinski's sign and no Kernig's sign noted. CV: Normal rate, regular rhythm, normal heart sounds and intact distal pulses. There is no peripheral edema. Palpable radial pulses bue. PULM/CHEST: Effort normal and breath sounds normal. No respiratory distress. No stridor. She has no wheezes. She has no rales. -Chest Wall: She exhibits no tenderness. ABD: The abdomen is soft gravid. Bowel sounds are normal. She has no distension. No mass is present. There is tenderness to palpation of the right lower quadrant, left lower quadrant and suprapubic area. There is no rebound, no guarding, no Andrew's sign and no tenderness at McBurney's point. Rovsig negative MUSC/SKEL: Normal range of motion. There is no peripheral edema, tenderness or deformity. LYMPH: No cervical adenopathy. NEURO: She is alert and oriented to person, place, and time. She has normal strength. No cranial nerve deficit or sensory deficit. Coordination and gait normal. GCS eye subscore is 4. GCS verbal subscore is 5. GCS motor subscore is 6. Cerebellar tests wnl. SKIN: Skin is warm and dry. She is not diaphoretic. PSYCH: She has a normal mood and affect. Behavior is normal. Judgment and thought content normal. Course Course 1642: The patient was evaluated in room B10. A complete history and physical exam was performed. Cardiac monitoring: An order was placed for continuous cardiac monitoring. The monitor shows a rate of 60 with sinus rhythm 1715: Dr. Beal [facility] CLAIMS SPECIALIST came down and evaluated the patient decided to take her to the OR. Administered Medications Sodium Chloride (Nss 1000ml) 1,000 mls @ 999 mls/hr IV .Q1H1M JEROME Stop: 12/08/19 18:00 Last Admin: 12/08/19 17:15 Dose: 999 mls/hr Documented by: Discontinued Medications Ondansetron HCl (Ondansetron Inj 2 Mg/Ml 2 Ml Vial) 4 mg IV NOW STA Stop: 12/08/19 16:51 Last Admin: 12/08/19 17:15 Dose: 4 mg Documented by: Medical Decision Making Laboratory Data Result diagrams: 12/08/19 17:03 12/08/19 17:03 Lab Results 12/08/19 Range/Units 17:03 WBC 18.12 H (4.8-10.8) K/uL RBC 4.38 (4.2-5.4) M/uL Hgb 12.6 (12.0-16.0) g/dL Hct 38.4 (37-47) % MCV 87.7 (80-100) fL MCH 28.8 (25-34) pg MCHC 32.8 (32-36) g/dL RDW Std Deviation 44.7 (36.4-46.3) fL RDW Coeff of Jerod 13.9 (11.5-14.5) % Plt Count 394 (130-400) K/uL MPV 10.4 (7.4-10.4) fL Immature Gran % (Auto) 0.2 % Neut % (Auto) 87.9 % Lymph % (Auto) 7.3 % Island % (Auto) 4.0 % Eos % (Auto) 0.4 % Baso % (Auto) 0.2 % Neut # (Auto) 15.94 H (1.4-6.5) K/uL Lymph # (Auto) 1.32 (1.2-3.4) K/uL Island # (Auto) 0.72 H (0.11-0.59) K/uL Eos # (Auto) 0.07 (0-0.5) K/uL Baso # (Auto) 0.03 (0-0.2) K/uL Immature Gran # (Auto) 0.04 H (0.00-0.02) K/uL MDM Narrative 1642: The patient was evaluated in room B10. A complete history and physical exam was performed. Cardiac monitoring: An order was placed for continuous cardiac monitoring. The monitor shows a rate of 60 with sinus rhythm 1715: Dr. Beal [facility] INSURANCE CLAIMS SPECIALIST came down and evaluated the patient decided to take her to the OR. Impression & Plan Ectopic Discharge Plan Visit Data Chief Complaint: Abdominal Pain Stated Complaint: ABDOMINAL PAIN, NAUSEA, DIZZY, ECTOPIC ED Provider: Wood Yang Discharge Problem: Ectopic Patient Disposition: Admitted As Inpatient Forms Stand Alone Forms: [facility] Prescriptions Prescriptions: No Action prenat.vits,nishi,wuo-[id number]-fkhfd Tablet 1 tab PO DAILY RF: 0 quetiapine [Seroquel] 100 mg tablet 100 mg PO DAILY RF: 0 Referrals Referrals: Abbie Joseph CRNP [Primary Care Provider] - Discharge Problem: Ectopic Qualifiers: Location of ectopic : unspecified location Intrauterine status: without intrauterine Qualified Code(s): O00.90 - Unspecified ectopic without intrauterine
[2019-12-08] MEDS ORDERED: BUPIVACAINE 0.5 % 5 MG/1 ML MPF 30ML VIAL ONE (17:03)
--- NOTE | 2019-12-08 17:09 | Anesthesiology Consultation ---
Date of Service December 08, 2019 Assessment & Plan (1) Encounter for pre-operative examination: Chart Review Chart Review: Acceptable Risk for Surgery History Surgery Operation Date: 12/08/19 13:05 Proposed Procedures p Laparoscopic Ectopic - Paramjit Boyd Jr, MD, FACOG Height/Weight Height: 4 ft 11 in Weight: 77.5 kg Allergies Allergy/AdvReac Type Severity Reaction Status Date / Time No Known Allergies Allergy Verified 12/08/19 14:53 Medications Home Medications Medication Instructions Recorded Confirmed Last Taken prenat.vits,nishi,sgk-onud-bhswr 1 tab PO DAILY 12/02/19 12/08/19 Unknown quetiapine 100 mg tablet 100 mg PO DAILY 12/02/19 12/08/19 Unknown Past Medical History Medical History (Updated 12/08/19 @ 17:09 by Deion Ferraro MD) 32 weeks gestation of 36 weeks gestation of Abdominal cramping Abdominal cramping complicating , antepartum Abdominal pain Abnormal bruising Amenorrhea Bipolar disorder control counseling Carrier of group B Streptococcus Cholestasis during in third trimester Diarrhea Dysmenorrhea Elevated alanine aminotransferase (ALT) level Elevated serum globulin level Encounter for visit Esophagitis with gastritis Fatigue Gardnerella infection History of fracture of upper extremity Itching Nausea & vomiting Nexplanon insertion Obesity Ovarian cyst, left Palmar pruritus Post-op bleeding depression with 36 completed weeks gestation with 36 completed weeks gestation Right flank pain Urinary symptom or sign Urinary tract infection Urinary tract infection Uterine cramping Vaginal bleeding Varicella vaccination Vomiting complicating Wound hematoma following section, Past Family History Family History Father Alcohol abuse Mother Anxiety Depression Diabetes Hypertension Grandfather (Maternal) Cancer Grandmother No problems noted. Grandmother (Paternal) Ovarian cancer Paternal Great Grandmother Denies family history of Prostate cancer Myocardial infarction Breast cancer Colorectal cancer Past Surgical History Surgical History History of surgical procedure Linda Treat of fracture of the ulnar shaft, with manipulation Hx of tonsillectomy Previous delivery affecting , antepartum S/P x2 S/P wisdom tooth extraction Social History Smoking Status: Never smoker Hx Alcohol Use: Yes Hx Substance Use: No Physical Exam Vital Signs Last Vital Signs Temp 36.9 C 12/08/19 16:30 Pulse 72 12/08/19 16:30 Resp 18 12/08/19 16:30 BP 140/88 12/08/19 16:30 Pulse Ox 100 12/08/19 16:30
[2019-12-08 17:15] LABS: Basophils # (auto) 0.03 K/uL (0-0.2); Basophils % (auto) 0.2 %; Eosinophils # (auto) 0.07 K/uL (0-0.5); Eosinophils % (auto) 0.4 %; Hematocrit (blood only) 38.4 % (37-47); Hemoglobin 12.6 g/dL (12.0-16.0); Immature Granulocytes # (auto) 0.04 K/uL (0.00-0.02); Immature Granulocytes % (auto) 0.2 %; Lymphocytes # (auto) 1.32 K/uL (1.2-3.4); Lymphocytes % (auto) 7.3 %; Mean Corpuscular Hemoglobin 28.8 pg (25-34); Mean Corpuscular Hgb Conc 32.8 g/dL (32-36); Mean Corpuscular Volume 87.7 fL (80-100); Mean Platelet Volume 10.4 fL (7.4-10.4); Monocytes # (auto) 0.72 K/uL (0.11-0.59); Neutrophils # (auto) 15.94 K/uL (1.4-6.5); Neutrophils % (auto) 87.9 %; Platelet Count 394 K/uL (130-400); RDW Coefficient of Variation 13.9 % (11.5-14.5); RDW Standard Deviation 44.7 fL (36.4-46.3); Red Blood Count 4.38 M/uL (4.2-5.4); White Blood Count 18.12 K/uL (4.8-10.8)
--- NOTE | 2019-12-08 17:15 | History & Physical Report ---
Date of Service December 08, 2019 Assessment & Plan (1) Ectopic : The patient was seen by Dr. Beatriz Olea in the office where the diagnosis of the ectopic was made. Patient has been sent to the emergency room for evaluation. Discussed with the patient that the patient appears to have a ruptured ectopic of the right fallopian tube. The need for operative evacuation has been discussed. Risk benefits and alternatives to the surgery have been discussed. While benefits will be removal of the ectopic, the risks of bleeding, infection, inadvertent injury to bowel or bladder. The need for possible right salpingectomy has also been discussed. All questions answered of the patient. Permit has been signed and she wishes to proceed. History of Present Illness Chief Complaint: Ruptured ectopic Primary Care Provider: CAYETANO Naylor The patient is a 24-year-old 3 para 2, with a last menstrual period of 16 October, at 7+ weeks gestational age who presents to the emergency room from the office for presumed ruptured ectopic . Patient was seen today for routine OB check. Transvaginal ultrasound showed nothing in the uterus as well as complex fluid in the cul-de-sac. The left adnexa had a probable ectopic . Because of the ruptured status the patient was sent to the emergency room for further evaluation and admission. The patient has not complained of any vaginal bleeding but she is complaining of lower abdominal pain as well as nausea and vomiting. The patient's past 2 pregnancies were both sections. In 2016 she had a primary section in 2018 she had an elective repeat section. Allergies Allergy/AdvReac Type Severity Reaction Status Date / Time No Known Allergies Allergy Verified 12/08/19 14:53 Home Medications Home Medications Medication Instructions Recorded Confirmed Type prenat.vits,nishi,sef-fqnm-cwqgl 1 tab PO DAILY 12/02/19 12/08/19 History quetiapine 100 mg tablet 100 mg PO DAILY 12/02/19 12/08/19 History Patient History Medical History (Updated 12/08/19 @ 17:09 by Deion Ferraro MD) 32 weeks gestation of 36 weeks gestation of Abdominal cramping Abdominal cramping complicating , antepartum Abdominal pain Abnormal bruising Amenorrhea Bipolar disorder control counseling Carrier of group B Streptococcus Cholestasis during in third trimester Diarrhea Dysmenorrhea Elevated alanine aminotransferase (ALT) level Elevated serum globulin level Encounter for visit Esophagitis with gastritis Fatigue Gardnerella infection History of fracture of upper extremity Itching Nausea & vomiting Nexplanon insertion Obesity Ovarian cyst, left Palmar pruritus Post-op bleeding depression with 36 completed weeks gestation with 36 completed weeks gestation Right flank pain Urinary symptom or sign Urinary tract infection Urinary tract infection Uterine cramping Vaginal bleeding Varicella vaccination Vomiting complicating Wound hematoma following section, Surgical History History of surgical procedure Linda Treat of fracture of the ulnar shaft, with manipulation Hx of tonsillectomy Previous delivery affecting , antepartum S/P x2 S/P wisdom tooth extraction Family History Father Alcohol abuse Mother Anxiety Depression Diabetes Hypertension Grandfather (Maternal) Cancer Grandmother No problems noted. 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 Feels Safe at Home: Yes Dental Care, Regularly: Yes Physical Activity Frequency: 3-4 Times per Week Physical Exam Constitutional: WD/WN, vitals as above Neck: trachea midline, no thyromegaly Respiratory: normal respiratory effort, lungs clear to auscultation Cardiovascular: RRR, no murmur, no edema Extremities: no calf tenderness Chest (Breasts): Breast: normal inspection of breasts, normal inspection of axillae, normal palpation of breasts and normal palpation of axillae Gastrointestinal (Abdomen): Inspection/Auscultation: abdomen normal to inspection Percussion/Palpation: + abdomen tender; no guarding and abdomen not rigid Genitourinary: Deferred Lymphatic: no lymphadenopathy Results & Data ([facility]) Vital Signs (Past 12 Hours) Vital Signs Temp Pulse Resp BP Pulse Ox 12/08/19 16:30 98.4 F 72 18 140/88 100 Coding Level of Care Code 71689 Office/Outpt Visit, Est Diagnoses Ectopic O00.90
[2019-12-08] MEDS ORDERED: LIDOCAINE HCL 2% 2 ML VIAL/AMP(20MG/ML) INFIL ONE (17:29)
[2019-12-08] MEDS ORDERED: ONDANSETRON INJ 2 MG/ML 2 ML VIAL ONE (17:29)
[2019-12-08] MEDS ORDERED: SUCCINYLCHOLINE 100MG/5ML SYR IV ONE (17:29)
[2019-12-08] MEDS ORDERED: ROCURONIUM BROMIDE 10 MG/ML 5 ML VIAL IV ONE (17:29)
[2019-12-08] MEDS ORDERED: DEXAMETHASONE SOD INJ 4 MG/ML VIAL ONE (17:29)
[2019-12-08] MEDS ORDERED: PROPOFOL IV EMULSION 10 MG/ML 20 ML VIAL IV ONE (17:29)
[2019-12-08] MEDS ORDERED: MIDAZOLAM HCL 1 MG/ML 2ML VIAL ONE (17:30)
[2019-12-08] MEDS ORDERED: fentaNYL citrate 100 MCG/2 ML VIAL ONE ×4 (17:30→19:56)
[2019-12-08 17:35] LABS: Albumin Level 4.1 gm/dl (3.4-5.0); BUN Creatinine Ratio 15.5 (10-20); Bilirubin Direct 0.1 mg/dl (0-0.2); Calcium 9.1 mg/dl (8.5-10.1); Creatinine Clr Calc Pharmacy 87.8 ml/min; Est GFR (African American) 105.8; Est GFR (Non-African American) 91.3; Potassium 3.4 mmol/L (3.5-5.1)
[2019-12-08] MEDS ORDERED: ONDANSETRON INJ 2 MG/ML 2 ML VIAL IV PRN (17:35)
[2019-12-08] MEDS ORDERED: KETOROLAC 30 MG/ML VIAL IV PRN (17:35)
[2019-12-08] MEDS ORDERED: ATROPINE SULFATE 0.1 MG/ML 10ML SYR IV PRN (17:35)
[2019-12-08 17:38] LABS: Bilirubin,Total 0.5 mg/dl (0.2-1); Total Protein 8.5 gm/dl (6.4-8.2)
--- NOTE | 2019-12-08 19:49 | Post Operative Brief Note ---
PG Immediate Post Op with CF Date of Surgery December 08, 2019 Pre & Post Diagnosis Operation Date: 12/08/19 13:05 Pre-Op Diagnosis: Ectopic to Hemoperitoneum Post-Op Diagnosis: Ectopic to Hemoperitoneum; Aborted Left Tubal ; Extensive, Multiple Pelvic Adhesions; Hemorrhaging Left Fallopian Tube; right ovarian cyst I identified the patient and participated in the time-out.: Yes Procedure Operation Date: 12/08/19 13:05 Actual Procedures p 1. Diagnostic Laparoscopy; 2. Evacuation of Hemoperitoneum; 3. Partial Left Salpingectomy(Not Applicable) - Paramjit Boyd Jr, MD, FACOG Surgeon Paramjit Boyd Jr, MD, FACOG [employer] Clerk None Estimated Blood Loss 500 Findings See Below (Laparoscopic examination of the pelvis showed hemoperitoneum with approximately 500cc of clotted on clotted blood. Active bleeding from the left fallopian tube consistent with tubal 5 cm right ovarian cyst distal end of the right fallopian tube not visualized secondary to extensive adhesio) Specimens Specimen Description: A. Left Partial Salpingectomy Drains Abdul Catheter
[2019-12-08] MEDS: fentaNYL citrate 100 MCG/2 ML VIAL IV PRN ×4 (20:20→20:32)
--- NOTE | 2019-12-08 20:37 | Anesthesiology Progress Note ---
Date of Service December 08, 2019 Anesthesia Post Procedure Vital Signs Vital Signs: Temp Pulse Pulse Pulse Resp BP BP 12/08/19 20:35 36.7 C 71 16 129/65 12/08/19 20:25 71 16 128/63 12/08/19 20:15 37.0 C 75 16 141/63 H 12/08/19 17:33 36.5 C 74 18 139/99 12/08/19 17:18 12/08/19 16:30 36.9 C 72 18 140/88 Pulse Ox 12/08/19 20:35 100 12/08/19 20:25 100 12/08/19 20:15 100 12/08/19 17:33 100 12/08/19 17:18 100 12/08/19 16:30 100 Pain Intensity Abdomen: Pain Intensity: 7 Transfer of Care Handoff Completed per policy Notes Mental Status: alert / awake / arousable Patient Amnestic to Procedure: Yes Nausea / Vomiting: adequately controlled Pain: adequately controlled Airway Patency, RR, SpO2: stable & adequate BP & HR: stable & adequate Hydration State: stable & adequate Anesthetic Complications: no major complications apparent
--- NOTE | 2019-12-08 21:47 | Operative Report (OR) ---
DATE OF OPERATION: 12/08/2019 PREOPERATIVE DIAGNOSES: 1. Ectopic . 2. Hemoperitoneum. POSTOPERATIVE DIAGNOSES: 1. Ectopic . 2. Aborted left tubal . 3. Hemorrhaging left fallopian tube. 4. Right ovarian cyst. 5. Extensive multiple pelvic adhesions. PROCEDURES PERFORMED: 1. Diagnostic laparoscopy. 2. Evacuation of hemoperitoneum. 3. Partial left salpingectomy. SURGEON: Paramjit Boyd MD. ANESTHESIA: General. FINDINGS: Laparoscopic examination of the pelvis showed an extensive hemoperitoneum with approximately 500 mL of clotted and unclotted blood. Initial aspiration of the blood allowed visualization of the pelvis, extensive multiple pelvic adhesions with the uterus adhered to the anterior abdominal wall. There was a 5 cm right ovarian cyst, distal end of the right fallopian tube could not be visualized. The left fallopian tube showed an aborted with active hemorrhaging coming from the left fallopian tube. Attempts at conservative management were unsuccessful necessitating a distal left salpingectomy. The pelvis was thoroughly irrigated with 1500 mL of normal saline. PROCEDURE IN DETAIL: The patient was taken to the operating room and after general anesthesia, was placed in a dorsal lithotomy position, draped and prepped for a laparoscopic procedure. Abdul catheter was inserted into the bladder, which remained there throughout the procedure. Single tooth tenaculum was used to grasp the anterior lip of the cervix. [place] cannula was inserted into the cervical os and fastened to the tenaculum. Umbilical incision was made and the Veress needle was then introduced into the pelvic cavity, which was then insufflated with 3 liters of CO2. Under direct laparoscopic guidance, a 10 mm laparoscopic port was introduced into the pelvis. A left 5 mm paramedial port and an 11 mm right paramedial port were placed under direct laparoscopic guidance. Pelvic was visualized with description as above. Using the large Yankauer suction, most of the clot was aspirated out allowing visualization of the pelvis with description as above. The pelvis was thoroughly irrigated to remove all blood as possible. The right fallopian tube could not be visualized as it was adhered to the pelvic side wall in the adhesion. A right 5 cm simple ovarian cyst was noted, which popped during the procedure. The distal end of the left fallopian tube had profuse bleeding throughout the case and continued collecting blood in the cul-de-sac. There was no way to cauterize this and in order to control the hemorrhage, a distal left salpingectomy was performed and sent for pathological evaluation. After aspirating all the fluid and blood as possible, the surgery was terminated. The CO2 was allowed to escape from the pelvic cavity. The trocars were removed under direct laparoscopic guidance. The right paramedial and umbilical fascia was reapproximated with interrupted 0 Vicryl suture and then skin incisions were all closed with 4-0 Monocryl subcuticular stitches. Sterile dressings were applied. Abdul catheter was removed. [place] cannula was removed from the cervix. The patient was taken out of dorsal lithotomy to recovery room in satisfactory condition. I attest to the content of the Intraoperative Record and any orders documented therein. Any exception s are noted below.
[2019-12-08] MEDS: MEPERIDINE HCL 50 MG/ML CARP IV PRN (21:56)
[2019-12-08] MEDS: LACTATED RINGER'S 1,000 ML IV SCH (21:57)
[2019-12-09] MEDS: MEPERIDINE HCL 50 MG/ML CARP IV PRN ×3 (01:15→11:11)
[2019-12-09] MEDS: IBUPROFEN 600 MG TAB PO PRN ×3 (01:50→13:42)
[2019-12-09] MEDS: OXYCODONE/ACETAMINOPHEN 5mg/325mg TAB PO PRN ×3 (01:51→13:42)
[2019-12-09] MEDS: LACTATED RINGER'S 1,000 ML IV SCH (05:37)
--- NOTE | 2019-12-09 06:04 | Gynecologic Progress Note ---
Date of Service December 09, 2019 Assessment & Plan (1) Ectopic : - Discussed surgery and findings with patient. Operative findings showed extensive adhesions and a hemoperitoneum. Uncontrolled bleeding from the left fallopian tube necessitated removal of tube. The right fallopian tube while still present, was involved with dense adhesions on the right. Incidental right ovarian cyst was noted. Pictures from the surgery were reviewed with the patient. Discussed with the patient that while there still is one tube, its functionality is unknown. That does not mean that the patient cannot get , but I suspect she will have difficulty. If the patient does achieve , she does increased risk for repeat ectopic . Patient declines contraception at this time. The patient is tolerating a regular diet and voiding without difficulty. She will be discharged home with pain medication and will follow-up in 2 weeks time for a postoperative check. Admission and Anticipated Discharge Date Admission Date: December 08, 2019 Anticipated date of discharge: 12/09/19 Subjective Ambulating, voiding, and tolerating p.o. Physical Exam Constitutional: WD/WN, vitals as above Respiratory: normal respiratory effort, lungs clear to auscultation Cardiovascular: RRR, no murmur, no edema Gastrointestinal (Abdomen): Incisions intact, appropriate post-op tenderness Musculoskeletal: (-) deep calf tenderness Results & Data ([facility]) Vital Signs (Past 12 Hours) Vital Signs Temp Pulse Pulse Resp BP Pulse Ox 12/09/19 05:00 98.1 F 78 18 124/74 12/09/19 00:05 98.4 F 73 18 115/75 99 12/08/19 23:05 98.2 F 79 18 105/69 100 12/08/19 22:00 98.2 F 79 18 105/70 99 12/08/19 21:30 97.7 F 69 18 111/64 100 12/08/19 21:00 98.2 F 79 18 110/82 100 12/08/19 20:35 98.1 F 71 16 129/65 100 12/08/19 20:25 71 16 128/63 100 12/08/19 20:15 98.6 F 75 16 141/63 H 100 PG Care Time/CCT Total # of Minutes Spent Total Time Spent with Patient: Total time spent is greater than 50% in coordination of care (as documented) at patient's floor/unit and/or counseling patient: Coding Level of Care Code None Diagnoses Ectopic O00.90 Intrauterine status: without intrauterine Location of ectopic : unspecified location (1) Ectopic Intrauterine status: without intrauterine Location of ectopic : unspecified location Qualified Code(s): O00.90 - Unspecified ectopic without intrauterine
--- NOTE | 2019-12-09 06:12 | Discharge Summary ---
Date of Service December 09, 2019 Admission HPI Per Admitting Provider The patient is a 24-year-old 3 para 2, with a last menstrual period of 16 October, at 7+ weeks gestational age who presents to the emergency room from the office for presumed ruptured ectopic . Patient was seen today for routine OB check. Transvaginal ultrasound showed nothing in the uterus as well as complex fluid in the cul-de-sac. The left adnexa had a probable ectopic . Because of the ruptured status the patient was sent to the emergency room for further evaluation and admission. The patient has not complained of any vaginal bleeding but she is complaining of lower abdominal pain as well as nausea and vomiting. The patient's past 2 pregnancies were both sections. In 2016 she had a primary section in 2018 she had an elective repeat section. Discharge Data Procedures Performed Operation Date: 12/08/19 13:05 Actual Procedures p 1. Diagnostic Laparoscopy; 2. Evacuation of Hemoperitoneum; 3. Partial Left Salpingectomy(Not Applicable) - Paramjit Boyd Jr, MD, [facility] (1) Ectopic : - Discussed surgery and findings with patient. Operative findings showed extensive adhesions and a hemoperitoneum. Uncontrolled bleeding from the left fallopian tube necessitated removal of tube. The right fallopian tube while still present, was involved with dense adhesions on the right. Incidental right ovarian cyst was noted. Pictures from the surgery were reviewed with the patient. Discussed with the patient that while there still is one tube, its functionality is unknown. That does not mean that the patient cannot get , but I suspect she will have difficulty. If the patient does achieve , she does increased risk for repeat ectopic . Patient declines contraception at this time. The patient is tolerating a regular diet and voiding without difficulty. She will be discharged home with pain medication and will follow-up in 2 weeks time for a postoperative check. Coding Level of Care Code None Diagnoses Ectopic O00.90 Intrauterine status: without intrauterine Location of ectopic : unspecified location
[2019-12-09 06:42] LABS: Hematocrit (blood only) 28.1 % (37-47); Hemoglobin 9.2 g/dL (12.0-16.0); Immature Granulocytes # (auto) 0.04 K/uL (0.00-0.02); Immature Granulocytes % (auto) 0.3 %; Lymphocytes # (auto) 0.64 K/uL (1.2-3.4); Lymphocytes % (auto) 5.1 %; Mean Corpuscular Hemoglobin 28.5 pg (25-34); Mean Corpuscular Hgb Conc 32.7 g/dL (32-36); Mean Platelet Volume 9.9 fL (7.4-10.4); Monocytes # (auto) 0.43 K/uL (0.11-0.59); Monocytes % (auto) 3.4 %; Neutrophils # (auto) 11.44 K/uL (1.4-6.5); Neutrophils % (auto) 91.2 %; Platelet Count 325 K/uL (130-400); RDW Coefficient of Variation 13.8 % (11.5-14.5); RDW Standard Deviation 44.3 fL (36.4-46.3); Red Blood Count 3.23 M/uL (4.2-5.4); White Blood Count 12.55 K/uL (4.8-10.8)
[2019-12-09] MEDS ORDERED: QUETIAPINE FUMARATE 100 MG TABLET PO SCH (09:00)
--- NOTE | 2019-12-09 10:11 | Gynecologic Progress Note ---
Date of Service December 09, 2019 Assessment & Plan (1) Post-operative state: (2) Ectopic : abdomen more distended that i expected. ? blood in abdomen. she is not acting like acute hemorrhage as far as her vital signs but is tender but also had recent surgery. will get stat hgb now. bedside u/s to see if able to see if fluid in abdomen is blood. i reviewed op note and pelvis was irrigated alot so likely just irrigant. pt had requested seeing psych due to her mood, she does follow with Tj Mays PA-C at [place]. She has called her. She denies SI or HI. if hgb stable and no significant findings on us, plan to ambulate and await flatus. keep NPO for now. Admission and Anticipated Discharge Date Admission Date: December 08, 2019 Subjective pt is sad with outcome of . she is not hungry. no vomiting. she is not passing gas. she has pain. umbilical incision site leaking. Review of Systems Review of Systems: per hpi Physical Exam Constitutional: WD/WN, vitals as above Gastrointestinal (Abdomen): Inspection/Auscultation: + abdomen distended and + abdominal surgical incision (intact, bloody fluid from incision site at u mbilicus) Percussion/Palpation: + abdomen tender, + guarding and abdomen soft (fluid wave); abdomen not rigid Psychiatric: A+Ox3, euthymic affect Results & Data ([facility]) Vital Signs (Past 12 Hours) Vital Signs Temp Pulse Resp BP Pulse Ox 12/09/19 05:00 98.1 F 78 18 124/74 12/09/19 00:05 98.4 F 73 18 115/75 99 12/08/19 23:05 98.2 F 79 18 105/69 100 PG Care Time/CCT Total # of Minutes Spent Total Time Spent with Patient: Total time spent is greater than 50% in coordination of care (as documented) at patient's floor/unit and/or counseling patient: Coding Level of Care Code None Diagnoses Post-operative state Z98.890 Ectopic O00.90 Intrauterine status: without intrauterine Location of ectopic : unspecified location (1) Ectopic Intrauterine status: without intrauterine Location of ectopic : unspecified location Qualified Code(s): O00.90 - Unspecified ectopic without intrauterine
[2019-12-09 10:17] LABS: Hemoglobin 9.1 g/dL (12.0-16.0)
--- NOTE | 2019-12-09 11:07 | Communication Note ---
Date of Service: December 09, 2019 I am following this patient while Dr Olea is performing a on another patient. Berta had ruptured ectopic yesterday, operated on by Dr. Boyd with evacuation of hemoperitoneum and L salpingectomy yesterday. She was complaining of watery/serosanguineous discharge from umbilical incision and abdominal pain today. Has not had appetite today, is c/o eructation, no flatus postoperatively. Has not had anything to eat or drink today by own choice. Has not ambulated. Is also c/o worsening depression and was hoping to receive psych care. At the time I returned to the room for repeat ultrasound (see below), she has just spoken to her established psych provider on the phone and is happy that she was able to get an appointment for early next week, feels cheered by knowing that and declines inpatient psych visit for that reason. She has a friend at the bedside. I also note she did not receive last night's dose of her quetiapine due to the surgery. Preop hgb was 12 --> 9.2 postop. A stat recheck just resulted at 9.1 and is therefore stable. Vitals in the chart are 124/74 and p78, but RN just took more vitals that haven't been charted yet, and P90 / BP is slightly lower than prior. Abdominal exam: four surgical sites, 3 of them dressed and the umbilical site open to air. Small amount serosanguineous drainage in umbilical well, blotted away, and does not refill / drain actively. Abdomen soft / mildly obese, TTP. Bowel sounds present but high and tinkling. Bedside ultrasound done by this MD initially reveals very enlarged bladder, unable to visualize uterus, echogenic / uniform bowels filling abdomen, no obvious free fluid. Lifting of the ultrasound probe did elicit wincing, but difficult to determine if true +rebound as patient uniformly tender to all touch including when I blotted her umbilicus dry. Patient was asked to void and then ultrasound was repeated. I can now easily visualize the uterus which is small, no GS seen, thin EL, and the cul-de-sac is visible and does NOT appear to have any significant collection of fluid around the pelvic organs. Peristalsis of the bowels is observed but is hypoactive. I note that during repeat ultrasound the patient is far less tender and does NOT elicit a wince as the probe is lifted. At this time I am closely observing the patient, looking to r/o ongoing intra- abdominal bleeding. I do not feel the current signs and symptoms are convincing enough to return to OR. Vitals will be at least hourly. Quant ordered to check for drop as confirmation that ectopic was truly removed. Formal US still pending to confirm the findings of my unofficial bedside scan. As there may well be ileus causing her abdominal pain, we will try ambulation, and I have allowed sips of clear liquids hoping to help stimulate bowel peristalsis and flatus. Will wait to advance diet until after further information available.
--- NOTE | 2019-12-09 12:47 | Ultrasound Report ---
US abdomen limited HISTORY: ? hemoperitoneum, s/p surgery for repeated ectopic. COMPARISON: None. FINDINGS: A limited survey evaluation of the abdomen and pelvis shows no evidence for a major residual hemoperi toneum or free fluid component. There is no evidence for bowel distention based on ultrasound criteri a. The right ovary measured 3.4 cm and contains a 2.6 cm cyst. The uterus is midline and unremarkable. T he left ovary has a maximum dimension 2.9 cm with normal vascular flow. There is a small amount of clifton rrounding fluid. IMPRESSION: Survey evaluation of the abdomen and pelvis shows no evidence for major collection or hem atoma. No major free fluid. Small amount of free fluid surrounding the ovaries which may indicate a p ost operative fluid versus partial cyst rupture. The above report was generated using voice recognition software. It may contain grammatical, syntax or spelling errors. Electronically signed by: Mirza Urias M.D. 12/09/2019 12:46 PM
--- NOTE | 2019-12-09 13:00 | Communication Note ---
Date of Service: December 09, 2019 Formal US confirms no acute hemoperitoneum. Vitals remain stable. Quant dropped >50% indicating likely complete removal of gestational tissue. Patient to continue postoperative observation and care.
[2019-12-09 14:54] VITALS: O2SAT 98
[2019-12-09 16:46] VITALS: BP 118/77; PULSE 81; TEMP 98.2
[2019-12-09] MEDS ORDERED: OXYCODONE HCL IR 5 MG TAB (IMMEDIATE RELEASE) PO PRN (17:07)
--- NOTE | 2019-12-09 17:22 | Gynecologic Progress Note ---
Date of Service December 09, 2019 Assessment & Plan (1) Post-operative state: (2) Ectopic : pt doing much better. reassuring that she is passing gas. in the end seemingly distended abdomen related to bowel gas. no ongoing bleeding suspected. pain control adequate but given pt cannot picker operator pain script until am, will send small amount of oxycodone to [facility]. checked on papdmp, no issues identified. will followup with dr. boyd as planned. reviewed situation with her earlier today and vitals remain stable, again hgb was stable and she is meeting criteria for discharge and desires such. Admission and Anticipated Discharge Date Admission Date: December 08, 2019 Subjective pt doing well. has used max of tylenol today for pain control. keshav po, no n/v. +flatus. ready to go home. feels less distended. voiding without prob. ambulating. her home pharm has closed and cannot picker operator script sent by Dr. Boyd today. Review of Systems Review of Systems: per hpi, no cp/sob Physical Exam Constitutional: WD/WN, vitals as above Gastrointestinal (Abdomen): Inspection/Auscultation: + abdominal surgical incision (c/d/i) Percussion/Palpation: abdomen soft; abdomen nontender and no guarding Results & Data ([facility]) Vital Signs (Past 12 Hours) Vital Signs Temp Pulse Pulse Resp BP BP Pulse Ox 12/09/19 16:15 98.2 F 81 19 118/77 98 12/09/19 14:50 98.8 F 75 18 115/70 98 12/09/19 13:50 98.6 F 75 18 119/78 99 12/09/19 12:50 98.2 F 85 18 130/82 99 12/09/19 11:50 98.4 F 79 18 118/76 99 12/09/19 10:50 98.1 F 88 20 119/78 98 12/09/19 07:45 98.2 F 90 19 107/72 97 PG Care Time/CCT Total # of Minutes Spent Total Time Spent with Patient: Total time spent is greater than 50% in coordination of care (as documented) at patient's floor/unit and/or counseling patient: Coding Level of Care Code None Diagnoses Post-operative state Z98.890 Ectopic O00.90 Intrauterine status: without intrauterine Location of ectopic : unspecified location (1) Ectopic Intrauterine status: without intrauterine Location of ectopic : unspecified location Qualified Code(s): O00.90 - Unspecified ectopic without intrauterine
== END 2019-12-09 18:05 | disposition home or self-care (01) ==
LOC: ED 16:04 → 4N 17:21 → ASU 17:21

== ENCOUNTER 2020-01-03 17:27 | Inpatient (IN) ==
[2020-01-03] MEDS ORDERED: ACETAMINOPHEN 325 MG TAB PO PRN (17:52)
--- NOTE | 2020-01-03 18:04 | OB/GYN Consultation ---
Date of Consultation January 03, 2020 Assessment & Plan (1) Pelvic abscess in female: Pelvic exam is deferred as it was recently done in the office this afternoon by my colleague Dr. Boyd. I will admit the patient we had discussed earlier with Dr. Boyd that likely would start broad-spectrum antibiotics labs will be drawn in the ER we will monitor the patient's progress over the next 24 to 48 hours patient states she had a negative COVID test will work approximately 7 days ago as she is routinely tested we will try and obtain that official result History of Present Illness Attending Physician: Patient known to our practice as she had a laparoscopy for prior ectopic approximately 3 weeks ago this was with. Dr. Boyd. She had been improving however over the weekend she noticed an increase in pain and presented to the ER she did not have a temperature at that time. She was seen in the ER CT scan noted some collections with a comment of possible abscess at that time the patient did not have an elevated temperature and her pain was stable and was discharged home for follow-up Today she was seen in the office by Dr. Boyd at that time her pain was worse she was not febrile on pelvic exam at that time Dr. Boyd noted exquisite tenderness in the cul-de-sac region. Currently in the emergency room patient states her pain is 7 out of 10 it is cramping in nature she does not feel feverish chills nausea diarrhea The patient says she had a negative COVID test that she is tested her place of work frequently and this was approximately a week ago I do not have access to this test at this moment Past history includes the ectopic surgery 3 weeks ago additionally she has had 2 prior section she is medically well with the exception of a history of depression which she takes Effexor for Allergies Allergy/AdvReac Type Severity Reaction Status Date / Time No Known Allergies Allergy Verified 01/03/20 16:25 Home Medications Home Medications Medication Instructions Recorded Confirmed Type venlafaxine 75 mg PO QAM 01/01/20 01/03/20 History acetaminophen [Tylenol Extra 1,000 mg PO Q6H PRN 01/03/20 01/03/20 History Strength] oxycodone-acetaminophen 1 tab PO UD PRN 01/03/20 01/03/20 History Patient History Medical History (Updated 01/03/20 @ 17:22 by Paramjit Boyd Jr, MD, FACOG) 32 weeks gestation of 36 weeks gestation of Abdominal cramping Abdominal cramping complicating , antepartum Abdominal pain Abnormal bruising Amenorrhea Bipolar disorder control counseling Carrier of group B Streptococcus Cholestasis during in third trimester Diarrhea Dysmenorrhea Ectopic Elevated alanine aminotransferase (ALT) level Elevated serum globulin level Encounter for visit Encounter for pre-operative examination Esophagitis with gastritis Fatigue Gardnerella infection History of fracture of upper extremity Itching Nausea & vomiting Nexplanon insertion Obesity Ovarian cyst, left Palmar pruritus Post-op bleeding depression with 36 completed weeks gestation with 36 completed weeks gestation Right flank pain Urinary symptom or sign Urinary tract infection Urinary tract infection Uterine cramping Uterine size date discrepancy Vaginal bleeding Varicella vaccination Vomiting complicating Wound hematoma following section, Surgical History (Updated 12/09/19 @ 10:08 by Beatriz Olea MD, FACOG) History of surgical procedure Linda Treat of fracture of the ulnar shaft, with manipulation Hx of tonsillectomy Previous delivery affecting , antepartum S/P x2 S/P wisdom tooth extraction Family History Father Alcohol abuse Mother Anxiety Depression Diabetes Hypertension Grandfather (Maternal) Cancer Grandmother No problems noted. Grandmother (Paternal) Ovarian cancer Paternal Great Grandmother Denies family history of Prostate cancer Myocardial infarction Breast cancer Colorectal cancer Social History Smoking Status: Never smoker Second Hand Exposure: No; Hx Alcohol Use: No Hx Substance Use: No Preferred Language: Yi Communication Ability: Effective Mains And Service Supervisor Required: No Beliefs That Will Affect Care: None marital status: engaged marital status details: Nilson Naik [phone] Current Living Situation: Family Current Living Situation Comment: lives with fob, 2 children, no pets current occupational status: employed current occupation: [employer] assistant Feels Safe at Home: Yes Dental Care, Regularly: Yes Physical Activity Frequency: 3-4 Times per Week Physical Exam Constitutional: WD/WN, vitals as above Respiratory: normal respiratory effort, lungs clear to auscultation Cardiovascular: RRR, no murmur, no edema Gastrointestinal (Abdomen): normal bowel sounds, soft, nontender, no hepatosplenomegaly (tender, but moderately so) Results & Data ([facility]) Vital Signs (Past 12 Hours) Vital Signs Temp Pulse Resp BP Pulse Ox 01/03/20 17:29 98.6 F 89 18 155/99 H 93 PG Care Time/CCT Total # of Minutes Spent Total Time Spent with Patient: Total time spent is greater than 50% in coordination of care (as documented) at patient's floor/unit and/or counseling patient: Coding Level of Care Code 98824 Office/OBS Consult Lvl 3 Diagnoses Pelvic abscess in female N73.9
[2020-01-03] MEDS ORDERED: metroNIDAZOLE 500 MG/100 ML BAG IV STA (18:20)
[2020-01-03] MEDS ORDERED: cefTRIAXone SODIUM 2,000 MG in DEXTROSE 5% 50 ML IV STA (18:27)
[2020-01-03 19:02] LABS: Basophils # (auto) 0.04 K/uL (0-0.2); Basophils % (auto) 0.5 %; Eosinophils # (auto) 0.43 K/uL (0-0.5); Eosinophils % (auto) 5.1 %; Hematocrit (blood only) 36.5 % (37-47); Hemoglobin 11.6 g/dL (12.0-16.0); Immature Granulocytes # (auto) 0.01 K/uL (0.00-0.02); Immature Granulocytes % (auto) 0.1 %; Lymphocytes # (auto) 2.94 K/uL (1.2-3.4); Lymphocytes % (auto) 34.9 %; Mean Corpuscular Hemoglobin 27.8 pg (25-34); Mean Corpuscular Hgb Conc 31.8 g/dL (32-36); Mean Corpuscular Volume 87.3 fL (80-100); Mean Platelet Volume 10.5 fL (7.4-10.4); Monocytes # (auto) 0.67 K/uL (0.11-0.59); Neutrophils # (auto) 4.33 K/uL (1.4-6.5); Neutrophils % (auto) 51.4 %; Platelet Count 455 K/uL (130-400); RDW Coefficient of Variation 13.6 % (11.5-14.5); RDW Standard Deviation 43.2 fL (36.4-46.3); Red Blood Count 4.18 M/uL (4.2-5.4); White Blood Count 8.42 K/uL (4.8-10.8)
[2020-01-03] MEDS: OXYCODONE/ACETAMINOPHEN 5mg/325mg TAB PO PRN (19:05)
[2020-01-03 19:19] LABS: BUN Creatinine Ratio 12.5 (10-20); Calcium 9.5 mg/dl (8.5-10.1); Creatinine Clr Calc Pharmacy 85.9 ml/min; Est GFR (African American) 104.4; Est GFR (Non-African American) 90.1; Potassium 3.4 mmol/L (3.5-5.1)
[2020-01-03] MEDS: LACTATED RINGER'S 1,000 ML IV SCH (21:08)
[2020-01-03] MEDS: MoRPHine SULFATE 2 MG/ML CARP IV PRN (23:16)
[2020-01-04] MEDS: MoRPHine SULFATE 2 MG/ML CARP IV PRN ×2 (03:25→16:10)
[2020-01-04] MEDS: metroNIDAZOLE 500 MG/100 ML BAG IV SCH ×3 (03:39→20:21)
[2020-01-04] MEDS: LACTATED RINGER'S 1,000 ML IV SCH ×2 (06:46→16:11)
--- NOTE | 2020-01-04 07:32 | Gynecologic Progress Note ---
Date of Service January 04, 2020 Assessment & Plan (1) Pelvic abscess in female: (2) Bilateral lower abdominal pain: - patient continues afebrile with normal WBC - still with significant lower abdominal pain - continue antibiotics and reacesses in 24 hours Admission and Anticipated Discharge Date Admission Date: January 03, 2020 Subjective no nauses/vomiting, still with abdominal pain Physical Exam Constitutional: WD/WN, vitals as above Cardiovascular: Extremities: no calf tenderness Gastrointestinal (Abdomen): Percussion/Palpation: + abdomen tender (deep palpation) and abdomen soft; no guarding and abdomen not rigid Results & Data ([facility]) Vital Signs (Past 12 Hours) Vital Signs Temp Pulse Pulse Resp BP Pulse Ox 01/04/20 03:15 98.2 F 59 L 18 137/89 100 01/03/20 23:20 98.4 F 66 18 126/85 97 01/03/20 20:00 98.1 F 71 18 140/85 98 PG Care Time/CCT Total # of Minutes Spent Total Time Spent with Patient: Total time spent is greater than 50% in coordination of care (as documented) at patient's floor/unit and/or counseling patient: Coding Level of Care Code 08816 Subseq Hosp Care Lvl 2 Diagnoses Pelvic abscess in female N73.9 Bilateral lower abdominal pain R10.31; R10.32
[2020-01-04] MEDS: ONDANSETRON INJ 2 MG/ML 2 ML VIAL IV PRN ×2 (09:00→18:09)
[2020-01-04] MEDS: OXYCODONE/ACETAMINOPHEN 5mg/325mg TAB PO PRN ×3 (09:22→20:32)
[2020-01-04] MEDS ORDERED: cefTRIAXone SODIUM 2,000 MG in DEXTROSE 5% 50 ML IV SCH (18:00)
[2020-01-05] MEDS: metroNIDAZOLE 500 MG/100 ML BAG IV SCH ×2 (03:35→12:15)
[2020-01-05] MEDS: LACTATED RINGER'S 1,000 ML IV SCH (03:35)
[2020-01-05 07:11] LABS: Basophils # (auto) 0.04 K/uL (0-0.2); Basophils % (auto) 0.7 %; Eosinophils % (auto) 7.4 %; Hematocrit (blood only) 34.3 % (37-47); Hemoglobin 10.6 g/dL (12.0-16.0); Lymphocytes # (auto) 1.87 K/uL (1.2-3.4); Lymphocytes % (auto) 34.5 %; Mean Corpuscular Hemoglobin 27.4 pg (25-34); Mean Corpuscular Hgb Conc 30.9 g/dL (32-36); Mean Corpuscular Volume 88.6 fL (80-100); Mean Platelet Volume 10.3 fL (7.4-10.4); Monocytes # (auto) 0.59 K/uL (0.11-0.59); Monocytes % (auto) 10.9 %; Neutrophils # (auto) 2.52 K/uL (1.4-6.5); Neutrophils % (auto) 46.5 %; Platelet Count 411 K/uL (130-400); RDW Standard Deviation 45.2 fL (36.4-46.3); Red Blood Count 3.87 M/uL (4.2-5.4); White Blood Count 5.42 K/uL (4.8-10.8)
[2020-01-05] MEDS: OXYCODONE/ACETAMINOPHEN 5mg/325mg TAB PO PRN (07:25)
[2020-01-05] MEDS ORDERED: VENLAFAXINE HCL XR 75 MG CAPXR PO SCH (09:00)
--- NOTE | 2020-01-05 09:39 | Gynecologic Progress Note ---
Date of Service January 05, 2020 Assessment & Plan (1) Pelvic abscess in female: The patient has been on antibiotics now coming up on 48 hours. She continues to be afebrile for the entire hospitalization as well as having a normal white count. Subjectively her pain is improved but still does persist. At this point I do not believe the patient has a pelvic abscess. As such I do not believe the IV antibiotics are of benefit and I do not see a role for outpatient p.o. antibiotics. We are going to discharge the patient home. The patient is going to use [id number] Motrin or Tylenol for pain. She will take her temperature twice a day and if it is greater than 100.4 she will contact me. With the extensive adhesive disease the patient has, I think ovulation suppression is appropriate. Options were discussed with the patient and she wishes to start the control pills. Patient has been on the control pills in the past. Prescription will be sent. Patient has been advised that she does not have contraception the first month. She will follow-up in the office in 2 weeks time for a repeat check. As always she is been instructed to call any questions problems or difficulties. (2) Bilateral lower abdominal pain: Admission and Anticipated Discharge Date Admission Date: January 03, 2020 Anticipated date of discharge: 01/05/20 Subjective no nauses/vomiting, still with abdominal pain Physical Exam Constitutional: WD/WN, vitals as above Cardiovascular: Extremities: no calf tenderness Gastrointestinal (Abdomen): Inspection/Auscultation: abdomen normal to inspection; abdomen not distended Percussion/Palpation: + abdomen tender (subjectively less) and abdomen soft; no guarding and abdomen not rigid Results & Data ([facility]) Vital Signs (Past 12 Hours) Vital Signs Temp Pulse Resp BP Pulse Ox 01/05/20 08:00 98.2 F 62 16 133/83 100 01/04/20 23:21 98.2 F 63 20 126/84 99 PG Care Time/CCT Total # of Minutes Spent Total Time Spent with Patient: Total time spent is greater than 50% in coordination of care (as documented) at patient's floor/unit and/or counseling patient: Coding Level of Care Code D/C Day Management <30 mins Diagnoses Pelvic abscess in female N73.9 Bilateral lower abdominal pain R10.31; R10.32
--- NOTE | 2020-01-05 09:44 | Discharge Summary ---
Date of Service January 05, 2020 Admission HPI Per Admitting Provider The patient is a 24-year-old 3 para 2 AB1, status post resection of left ectopic on 07 December, who presents today in follow-up from the emergency room. The patient was seen in the emergency room on 31 December for lower abdominal pain. She states that she was doing well after the surgery but pain return. Pain was so severe that she had an episode of nausea and vomiting. Patient was evaluated in the emergency room and had a pelvic CT which showed 2 collections of fluid possibly consistent with an abscess. The patient was noted to have a normal white count and no fever in the emergency room. Because of the lack of white count and fever the patient is following up here is an out patient. She was not started on antibiotics. Operative findings from her laparoscopy showed extensive pelvic adhesions with adherence of the uterus to the anterior abdominal wall. There was a 5 cm right ovarian cyst with the obliteration of the distal right tube which could not be visualized. The left fallopian tube had active hemorrhage which was requiring the resection of the distal half of the left tube. The patient had a hemoperitoneum which was evacuated and the pelvis was thoroughly irrigated. Hospital Course (1) Pelvic abscess in female: The patient was admitted with a presumed diagnosis of pelvic abscess postoperatively. This was based upon the CT scan findings. The patient was started on Mefoxin and doxycycline. She received 36 hours of IV antibiotics. During that time. The patient continued to have a normal white count with no fever. Subjectively the patient improved somewhat in her abdominal pain but it did persist. The decision was made to discontinue the antibiotics as the feeling was the patient did not have abscesses but postoperative loculation of fluid. The decision was made to send the patient home not on antibiotics and observation. The patient will take her temperature twice a day and if greater than 100.4 she will contact the office. The patient will follow-up in 2 weeks time for repeat check. Ovulation suppression will be initiated with oral contraceptive pills. Patient had been on the control pill in the past. Prescription was sent for the control pill and the patient will start immediately. Patient is aware that she does not have contraception the first cy missy. (2) Bilateral lower abdominal pain: Coding Level of Care Code D/C Day Management <30 mins Diagnoses Pelvic abscess in female N73.9 Bilateral lower abdominal pain R10.31; R10.32
== END 2020-01-05 12:50 | disposition home or self-care (01) | DRG 759 ==
LOC: ED 17:27 → 4S2 17:52